=== PATIENT | male | born 1960 | race Caucasian/White ===

== ENCOUNTER 2017-01-17 20:50 | Emergency (ER) | payer BC ==
[2017-01-17] MEDS ORDERED: Sodium Chloride 0.9% 2.5 ML Syringe FLUSH PRN (20:59)
[2017-01-17] MEDS ORDERED: Sodium Chloride 0.9% 10 ML Syringe FLUSH PRN (20:59)
[2017-01-17] MEDS ORDERED: Sodium Chloride 0.9% 1,000 ML IV ONE (20:59)
--- NOTE | 2017-01-17 21:01 | EDM.PDOC ---
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 Patient states he's been experiencing some right-sided abdominal pain intermittently since Memorial Day. The pain comes and goes and is worse with movement he has no nausea or vomiting but has had some mildly loose stool. No bloody stool or black stool. Patient is concerned he might have a kidney stone as he has previously had these. Reports that his urinary habits have been abnormal and is not sure that he is voiding the entire contents of his bladder. Fevers chills sweats or shaking chills. Abdomen is not distended and he has no chest pain or shortness of breath no cough. Review of systems: As per history of present illness and below otherwise all systems reviewed and negative. Past medical history: As per history of present illness and as reviewed below otherwise noncontributory. Surgical history: As per history of present illness and as reviewed below otherwise noncontributory. Social history: No reported history of drug or alcohol abuse. Family history: As per history of present illness and as reviewed below otherwise noncontributory. Physical exam: HEENT: Atraumatic, normocephalic, pupils reactive, negative for conjunctival pallor or scleral icterus, mucous membranes moist, throat clear, neck supple, nontender, trachea midline. Lungs: Clear to auscultation, breath sounds equal bilaterally, chest nontender. Heart: S1S2, regular, negative for clicks, rubs, or JVD. Abdomen: Soft, nondistended, mild right-sided tenderness no guarding or rebound. Normal bowel sounds. Negative for masses or hepatosplenomegaly. Negative for costovertebral tenderness. No suprapubic tenderness. Normal skin skin with no rash. Pelvis: Stable nontender. Genitourinary: Normal external genitalia with nontender scrotum and contents and no inguinal mass or hernia. Rectal: Deferred. Extremities: Atraumatic, negative for cords or calf pain. Neurovascular unremarkable. Neuro: Awake, alert, oriented. Cranial nerves grossly unremarkable. Cerebellum unremarkable. Motor and sensory unremarkable throughout. Exam nonfocal. Diagnostics: [Labs and CT pending EKG normal sinus rhythm at 74 normal axis no STEMI] Therapeutics: [Analgesia and IV fluids administered Impression: [] Plan: [Signs and symptoms consistent with urinary colic versus intra-abdominal pathology full workup pending including labs and CT. Patient will be kept nothing by mouth IV fluids running and pain was addressed patient did involve some nausea and vomiting and was given Zofran. EKG unremarkable] Labs unremarkable. Urinalysis equivocal for possibility of early infection. CT shows less than 2 mm stone right UVJ normal appendix and otherwise unremarkable. Suggested prescription of Keflex per patient however he clarified that he has artery on amoxicillin which is DrKymberly gave him after results of a urine culture were recently obtained. He has no fevers chills sweats or shaking chills. No infectious prodrome prior to this visit. Patient pain is controlled and his vital signs are unremarkable. He agrees with outpatient follow-up. Prescription given for [place] and Zofran for use as needed. He will follow-up with PCP for reevaluation and referral to urology as needed Definitive disposition and diagnosis as appropriate pending reevaluation and review of above. Right Lower Abdominal Pain Score (Numeric/FACES): 10 - Related Data Allergies Allergy/AdvReac Type Severity Reaction Status Date / Time ciprofloxacin Allergy Hives Verified 01/17/17 20:59 Home Meds: Home Meds Warfarin [Coumadin] 5 mg PO ASDIRECTED 01/17/17 [History] Cephalexin [Keflex] 500 mg PO QID 10 Days 01/18/17 [Rx] Ondansetron [Zofran ODT] 4 mg SL Q4H PRN #16 tab.dis 01/18/17 [Rx] Social & Family History - Tobacco Use Smoking Status *Q: Never Smoker Second Hand Smoke Exposure: No - Alcohol Use Days Per Week of Alcohol Use: 2 Number of Drinks Per Day: 4 Total Drinks Per Week: 8 - Recreational Drug Use Recreational Drug Use: No ED ROS GENERAL - Review of Systems Review Of Systems: See Below (History of present illness) ED EXAM, GI/ABD - Physical Exam Exam: See Below (History of present illness) Course - Vital Signs Last Recorded V/S: Last Vital Signs Temp 35.4 C 01/17/17 20:56 Pulse 78 01/17/17 22:25 Resp 18 01/17/17 22:25 BP 149/79 H 01/17/17 22:25 Pulse Ox 96 01/17/17 22:25 - Orders/Labs/Meds Orders: Active Orders 24 hr Category Date Time Status EKG Documentation Completion [RC] STAT Care 01/17/17 22:17 Active Abdomen Pelvis w wo Cont [CT] Stat Exams 01/17/17 21:18 Taken CULTURE URINE [RM] Stat Lab 01/18/17 00:31 Received Sodium Chloride 0.9% [Saline Flush] Med 01/17/17 20:59 Active 10 ml FLUSH ASDIRECTED PRN Sodium Chloride 0.9% [Saline Flush] Med 01/17/17 20:59 Active 2.5 ml FLUSH ASDIRECTED PRN Peripheral IV Insertion Adult [OM.PC] Stat Oth 01/17/17 20:59 Ordered Medication Orders Sodium Chloride (Saline Flush) 10 ml FLUSH ASDIRECTED PRN PRN Reason: Keep Vein Open Last Admin: 01/17/17 21:15 Dose: 10 ml Sodium Chloride (Saline Flush) 2.5 ml FLUSH ASDIRECTED PRN PRN Reason: Keep Vein Open Last Admin: 01/17/17 21:15 Dose: 2.5 ml Labs: Laboratory Tests 01/17/17 01/17/17 01/17/17 Range/Units 21:36 21:36 21:40 WBC 7.39 (4.0-11.0) K/uL RBC 4.74 (4.50-5.90) M/uL Hgb 14.5 (13.0-17.0) g/dL Hct 43.8 (38.0-50.0) % MCV 92.4 (80.0-98.0) fL MCH 30.6 (27.0-32.0) pg MCHC 33.1 (31.0-37.0) g/dL RDW Std Deviation 43.7 (28.0-62.0) fl RDW Coeff of Lewis 13 (11.0-15.0) % Plt Count 370 (150-400) K/uL MPV 9.70 (7.40-12.00) fL Neut % (Auto) 54.3 (48.0-80.0) % Lymph % (Auto) 28.3 (16.0-40.0) % [place] % (Auto) 7.4 (0.0-15.0) % Eos % (Auto) 8.9 H (0.0-7.0) % Baso % (Auto) 1.1 (0.0-1.5) % Neut # (Auto) 4.0 (1.4-5.7) K/uL Lymph # (Auto) 2.1 (0.6-2.4) K/uL [place] # (Auto) 0.6 (0.0-0.8) K/uL Eos # (Auto) 0.7 (0.0-0.7) K/uL Baso # (Auto) 0.1 (0.0-0.1) K/uL Nucleated RBC % 0.0 /100WBC Nucleated RBCs # 0 K/uL Sodium 143 (136-146) mmol/L Potassium 4.2 (3.5-5.1) mmol/L Chloride 109 (98-110) mmol/L Carbon Dioxide 22 (21-31) mmol/L BUN 21 (6.0-23.0) mg/dL Creatinine 1.2 (0.6-1.5) mg/dL Est Cr Clr Drug Dosing 64.92 mL/min Estimated GFR (MDRD) > 60.0 ml/min Glucose 151 H (60-110) mg/dL Calcium 9.0 (8.8-10.8) mg/dL Total Bilirubin 0.2 (0.1-1.5) mg/dL AST 36 (5-40) IU/L ALT 23 (8-54) IU/L Alkaline Phosphatase 66 (40-150) Total Protein 7.4 (6.0-8.0) g/dL Albumin 3.9 (3.5-5.0) g/dL Globulin 3.5 (2.0-3.5) g/dL Albumin/Globulin Ratio 1.1 L (1.3-2.8) Lipase 18 (7-80) U/L Urine Color YELLOW Urine Appearance CLEAR Urine pH 5.5 (5.0-8.0) Ur Specific [place] >= 1.030 (1.001-1.035) Urine Protein 30 (NEGATIVE) mg/dL Urine Glucose (UA) NEGATIVE (NEGATIVE) mg/dL Urine Ketones NEGATIVE (NEGATIVE) mg/dL Urine Occult Blood LARGE H (NEGATIVE) Urine Nitrite NEGATIVE (NEGATIVE) Urine Bilirubin NEGATIVE (NEGATIVE) Urine Urobilinogen 0.2 (<2.0) EU/dL Ur Leukocyte Esterase TRACE (NEGATIVE) Urine RBC 25-30 (0-2/HPF) Urine WBC 20-25 (0-5/HPF) Ur Epithelial Cells RARE (NONE-FEW) Urine Bacteria FEW (NEGATIVE) Urine Mucus LIGHT (NONE-MOD) Urinalysis Comment Meds: Medications Generic Name Dose Route Start Last Admin Trade Name Freq PRN Reason Stop Dose Admin Sodium Chloride 10 ml 01/17/17 20:59 01/17/17 21:15 Saline Flush FLUSH 10 ml ASDIRECTED PRN Administration Keep Vein Open Sodium Chloride 2.5 ml 01/17/17 20:59 01/17/17 21:15 Saline Flush FLUSH 2.5 ml ASDIRECTED PRN Administration Keep Vein Open Discontinued Medications Generic Name Dose Route Start Last Admin Trade Name Freq PRN Reason Stop Dose Admin Cephalexin 500 mg 01/18/17 00:12 01/18/17 00:31 Keflex PO 01/18/17 00:13 500 mg ONETIME ONE Administration Hydromorphone HCl 1 mg 01/17/17 21:19 01/17/17 22:04 Dilaudid IVPUSH 01/17/17 21:20 1 mg ONETIME ONE Administration Hydromorphone HCl 1 mg 01/18/17 00:36 01/18/17 00:48 Dilaudid IVPUSH 01/18/17 00:37 1 mg ONETIME ONE Administration Sodium Chloride 1,000 mls @ 999 mls/hr 01/17/17 20:59 01/17/17 21:15 Normal Saline IV 01/17/17 21:59 999 mls/hr .Bolus ONE Administration Iopamidol 100 ml 01/17/17 22:45 01/17/17 22:46 Isovue-370 (76%) IVPUSH 01/17/17 22:46 100 ml ONETIME STA Administration Ondansetron HCl 4 mg 01/17/17 21:58 01/17/17 22:04 Zofran IVPUSH 01/17/17 21:59 4 mg ONETIME ONE Administration Ondansetron HCl 4 mg 01/18/17 00:37 01/18/17 00:48 Zofran IVPUSH 01/18/17 00:38 4 mg ONETIME ONE Administration Departure - Departure Time of Disposition: :17 Disposition: Home, Self-Care 01 Condition: good Clinical Impression: Ureterolithiasis, Ureteral colic, Right flank pain - Discharge Information Prescriptions: Cephalexin [Keflex] 500 mg PO QID 10 Days Ondansetron [Zofran ODT] 4 mg SL Q4H PRN #16 tab.dis PRN Reason: Nausea Instructions: Renal Colic, [id number], Flank Pain, [id number] Referrals: Marcin Whelan MD [Primary Care Provider] - Forms: ED Department Discharge Additional Instructions: Your CT showed a 1.6 mm kidney stone just above the spot where your ureter enters the bladder. This is a very small kidney stone and will almost certainly pass spontaneously into your bladder and then out through your urethra. As you' re more comfortable at this point this tiny stone may have already passed into her bladder. Use [place] as needed for pain. Your urinalysis showed results that were equivocal regarding the possibility of an early infection. A urine culture will be pending and to air on the side of caution you've been prescribed Keflex an antibiotic that would cover a urinary tract infection. Follow-up with your tomorrow for reevaluation and to discuss whether eventual referral to a urologist might be indicated. Return immediately for new severe or worsening symptoms specifically for fever associated with worsening pain. Also be aware of the you do have multiple small kidney stones in both kidneys. It's impossible to predict whether or not he will ever pass any of these kidney stones but it's appropriate to be aware that they exist. - My Orders Last 24 Hours: My Active Orders 01/17/17 20:59 Sodium Chloride 0.9% [Saline Flush] 10 ml FLUSH ASDIRECTED PRN Sodium Chloride 0.9% [Saline Flush] 2.5 ml FLUSH ASDIRECTED PRN Peripheral IV Insertion Adult [OM.PC] Stat 01/17/17 21:18 Abdomen Pelvis w wo Cont [CT] Stat 01/17/17 22:17 EKG Documentation Completion [RC] STAT 01/18/17 00:31 CULTURE URINE [RM] Stat - Assessment/Plan Last 24 Hours: My Active Orders 01/17/17 20:59 Sodium Chloride 0.9% [Saline Flush] 10 ml FLUSH ASDIRECTED PRN Sodium Chloride 0.9% [Saline Flush] 2.5 ml FLUSH ASDIRECTED PRN Peripheral IV Insertion Adult [OM.PC] Stat 01/17/17 21:18 Abdomen Pelvis w wo Cont [CT] Stat 01/17/17 22:17 EKG Documentation Completion [RC] STAT 01/18/17 00:31 CULTURE URINE [RM] Stat
[2017-01-17] MEDS ORDERED: HYDROmorphone 1 MG/ML Syringe IVPUSH ONE (21:19)
[2017-01-17] MEDS ORDERED: Ondansetron 4 MG/2 ML SDV IVPUSH ONE (21:58)
[2017-01-17 22:09] LABS: CHLORIDE,CL 109 mmol/L (98-110); SODIUM,NA 143 mmol/L (136-146)
[2017-01-17] MEDS ORDERED: Iopamidol 755 Mg/ML 100 ML Bottle IVPUSH STA (22:45)
[2017-01-18] MEDS ORDERED: Cephalexin 500 MG Cap PO ONE (00:12)
[2017-01-18] MEDS ORDERED: HYDROmorphone 1 MG/ML Syringe IVPUSH ONE (00:36)
[2017-01-18] MEDS ORDERED: Ondansetron 4 MG/2 ML SDV IVPUSH ONE (00:37)
[2017-01-18 01:57] VITALS: BP 150/84
--- NOTE | 2017-01-18 11:12 | CT ---
EXAM DATE: 01/17/17 PATIENT'S AGE: 56 Patient: MAYA MIRANDA Facility: [place], [place] Site . Site : 1960 Study: CT Abdomen/Pelvis W/ and W/O Cont [id number]/[id number] 11:01:45 PM Ordering Physician: Jm Mathis Final Report: INDICATION: right lower quad pain with n/v/d TECHNIQUE: CT abdomen and pelvis acquired without and with IV contrast. COMPARISON: April 09, 2013. FINDINGS: Lower chest: Mild scarring/atelectasis. Liver: Unremarkable. Spleen: Unremarkable. Pancreas: Unremarkable. Gallbladder and bile ducts: Unremarkable. Kidneys: 6 mm calculus just proximal to the right ureterovesicular junction with associated right-sided hydroureter / hydronephrosis. Additional bilateral nonobstructing intrarenal calculi. . Adrenal glands: Unremarkable. GI tract: Unremarkable. Appendix is normal. Vascular structures: Atherosclerotic disease. No sign of aneurysm. Lymph nodes: Unremarkable. Miscellaneous: Unremarkable. No free air or significant free fluid. Pelvic Organs: Enlarged prostate with associated prostatic calcifications. Bones: Degenerative changes. IMPRESSION: 1. 6 mm calculus just proximal to the right ureterovesicular junction with associated right-sided hydroureter / hydronephrosis. Additional bilateral nonobstructing intrarenal calculi. 2. Enlarged prostate. Please correlate with PSA levels. Dictated by Félix North MD @ 01/17/2017 11:35:23 PM Dictated by: Félix North MD @ 01/17/2017 23:35:34 (Electronic Signature) Report Signed by Proxy. [facility]
== END 2017-01-18 01:10 | disposition home or self-care (01) ==
LOC: MW.ED 20:50
DX: N13.2 Hydronephrosis with renal and ureteral calculous obstruction (principal); Z88.1 Allergy status to other antibiotic agents
CPT/HCPCS: 36415; 74178; 80053; 81001; 83690; 85025; 87086; 93005; 96361; 96374; 96375; 96376; 99284; A9270; J1170; J2405; J7040; Q9967

== ENCOUNTER 2017-03-23 13:16 | Emergency (ER) | payer BC, OTHER ==
[2017-03-23] MEDS ORDERED: Sodium Chloride 0.9% 2.5 ML Syringe FLUSH PRN (14:12)
[2017-03-23] MEDS ORDERED: Sodium Chloride 0.9% 10 ML Syringe FLUSH PRN (14:12)
[2017-03-23] MEDS ORDERED: Sodium Chloride 0.9% 1,000 ML IV ONE (14:12)
--- NOTE | 2017-03-23 14:13 | EDM.PDOC ---
ED HPI GENERAL MEDICAL PROBLEM - General Chief Complaint: Gastrointestinal Problem Stated Complaint: SICK Time Seen by Provider: 03/23/17 13:50 Source of Information: Reports: Patient History Limitations: Reports: No Limitations - History of Present Illness INITIAL COMMENTS - FREE TEXT/NARRATIVE: History of present illness: []Patient developed lower abdominal pain last night that started localizing to the right side and wrapping around to his right flank. He denies any blood in his urine or difficulty urinating, fevers, diarrhea or nausea. Patient thought he may be constipated and gave himself an enema without any improvement. He was diagnosed with a left-sided kidney stone 1 month ago states this feels similar. Patient has not had any previous abdominal surgery. Review of systems: As per history of present illness and below otherwise all systems reviewed and negative. Past medical history: As per history of present illness and as reviewed below otherwise noncontributory. Surgical history: As per history of present illness and as reviewed below otherwise noncontributory. Social history: No reported history of drug or alcohol abuse. Family history: As per history of present illness and as reviewed below otherwise noncontributory. Physical exam: General: Well developed, well nourished in NAD HEENT: Atraumatic, normocephalic, pupils reactive, negative for conjunctival pallor or scleral icterus, mucous membranes moist, throat clear, neck supple, nontender, trachea midline. Lungs: Clear to auscultation, breath sounds equal bilaterally, chest nontender. Heart: S1S2, regular, negative for clicks, rubs, or JVD. Abdomen: Soft, nondistended, suprapubic bilateral tenderness worse on the right no rebound or guarding. There is no tenderness over McBurney's point. Negative for masses or hepatosplenomegaly. Negative for costovertebral tenderness. Pelvis: Stable nontender. Genitourinary: Deferred. Rectal: Deferred. Extremities: Atraumatic, negative for cords or calf pain. Neurovascular unremarkable. Neuro: Awake, alert, oriented. Cranial nerves II through XII unremarkable. Cerebellum unremarkable. Motor and sensory unremarkable throughout. Exam nonfocal. Diagnostics: []UA showing mild hematuria Therapeutics: []Patient was hydrated with IV fluids with pain completely resolved Impression: []Renal colic right Plan: []Increase fluids. I believe one dose of Toradol is safe despite being on anticoagulants if pain recurs, she prefers to not have narcotics. follow-up with Dr. Matias or return to the ER immediately Definitive disposition and diagnosis as appropriate pending reevaluation and review of above. Right Abdomen Pain Score (Numeric/FACES): 5 - Related Data Allergies Allergy/AdvReac Type Severity Reaction Status Date / Time ciprofloxacin Allergy Hives Verified 03/23/17 13:55 Home Meds: Home Meds Warfarin [Coumadin] 5 mg PO ASDIRECTED 01/17/17 [History] Ketorolac [Toradol] 10 mg PO Q6H PRN #6 tablet 03/23/17 [Rx] Past Medical History Cardiovascular History: Reports: Blood Clots/VTE/DVT Respiratory History: Reports: Sleep Apnea Gastrointestinal History: Reports: GERD Genitourinary History: Reports: Renal Calculus - Infectious Disease History Infectious Disease History: Reports: Chicken Pox Social & Family History - Family History Family Medical History: Noncontributory - Tobacco Use Smoking Status *Q: Never Smoker Second Hand Smoke Exposure: No - Caffeine Use Caffeine Use: Reports: None - Alcohol Use Days Per Week of Alcohol Use: 2 Number of Drinks Per Day: 4 Total Drinks Per Week: 8 - Recreational Drug Use Recreational Drug Use: No ED ROS GENERAL - Review of Systems Review Of Systems: See Below (See history of present illness) ED EXAM, GI/ABD - Physical Exam Exam: See Below (See history of present illness) Course - Vital Signs Last Recorded V/S: Last Vital Signs Temp 37.1 C 03/23/17 13:56 Pulse 82 03/23/17 13:56 Resp 18 03/23/17 13:56 BP 150/72 H 03/23/17 13:56 Pulse Ox 94 L 03/23/17 13:56 - Orders/Labs/Meds Orders: Active Orders 24 hr Category Date Time Status Sodium Chloride 0.9% [Saline Flush] Med 03/23/17 14:12 Active 10 ml FLUSH ASDIRECTED PRN Sodium Chloride 0.9% [Saline Flush] Med 03/23/17 14:12 Active 2.5 ml FLUSH ASDIRECTED PRN Saline Lock Insert [OM.PC] Stat Oth 03/23/17 14:12 Ordered Medication Orders Sodium Chloride (Saline Flush) 10 ml FLUSH ASDIRECTED PRN PRN Reason: Keep Vein Open Sodium Chloride (Saline Flush) 2.5 ml FLUSH ASDIRECTED PRN PRN Reason: Keep Vein Open Labs: Laboratory Tests 03/23/17 03/23/17 03/23/17 Range/Units 14:22 14:22 14:44 WBC 9.43 (4.0-11.0) K/uL RBC 4.76 (4.50-5.90) M/uL Hgb 14.4 (13.0-17.0) g/dL Hct 43.2 (38.0-50.0) % MCV 90.8 (80.0-98.0) fL MCH 30.3 (27.0-32.0) pg MCHC 33.3 (31.0-37.0) g/dL RDW Std Deviation 44.4 (28.0-62.0) fl RDW Coeff of Lewis 13 (11.0-15.0) % Plt Count 273 (150-400) K/uL MPV 10.10 (7.40-12.00) fL Neut % (Auto) 89.0 H (48.0-80.0) % Lymph % (Auto) 6.5 L (16.0-40.0) % [place] % (Auto) 4.3 (0.0-15.0) % Eos % (Auto) 0.0 (0.0-7.0) % Baso % (Auto) 0.2 (0.0-1.5) % Neut # (Auto) 8.4 H (1.4-5.7) K/uL Lymph # (Auto) 0.6 (0.6-2.4) K/uL [place] # (Auto) 0.4 (0.0-0.8) K/uL Eos # (Auto) 0.0 (0.0-0.7) K/uL Baso # (Auto) 0.0 (0.0-0.1) K/uL Nucleated RBC % 0.0 /100WBC Nucleated RBCs # 0 K/uL Sodium 139 (136-146) mmol/L Potassium 4.2 (3.5-5.1) mmol/L Chloride 107 (98-110) mmol/L Carbon Dioxide 22 (21-31) mmol/L BUN 20 (6.0-23.0) mg/dL Creatinine 1.1 (0.6-1.5) mg/dL Est Cr Clr Drug Dosing 69.95 mL/min Estimated GFR (MDRD) > 60.0 ml/min Glucose 140 H (60-110) mg/dL Calcium 8.7 L (8.8-10.8) mg/dL Total Bilirubin 0.4 (0.1-1.5) mg/dL AST 20 (5-40) IU/L ALT 15 (8-54) IU/L Alkaline Phosphatase 63 (40-150) Total Protein 6.9 (6.0-8.0) g/dL Albumin 3.8 (3.5-5.0) g/dL Globulin 3.1 (2.0-3.5) g/dL Albumin/Globulin Ratio 1.2 L (1.3-2.8) Lipase 14 (7-80) U/L Urine Color YELLOW Urine Appearance CLEAR Urine pH 6.0 (5.0-8.0) Ur Specific [place] 1.025 (1.001-1.035) Urine Protein NEGATIVE (NEGATIVE) mg/dL Urine Glucose (UA) NEGATIVE (NEGATIVE) mg/dL Urine Ketones NEGATIVE (NEGATIVE) mg/dL Urine Occult Blood MODERATE (NEGATIVE) Urine Nitrite NEGATIVE (NEGATIVE) Urine Bilirubin NEGATIVE (NEGATIVE) Urine Urobilinogen 0.2 (<2.0) EU/dL Ur Leukocyte Esterase NEGATIVE (NEGATIVE) Urine RBC 4-6 (0-2/HPF) Urine WBC 0-2 (0-5/HPF) Ur Epithelial Cells FEW (NONE-FEW) Urine Bacteria FEW (NEGATIVE) Urine Mucus MODERATE (NONE-MOD) Meds: Medications Generic Name Dose Route Start Last Admin Trade Name Freq PRN Reason Stop Dose Admin Sodium Chloride 10 ml 03/23/17 14:12 Saline Flush FLUSH ASDIRECTED PRN Keep Vein Open Sodium Chloride 2.5 ml 03/23/17 14:12 Saline Flush FLUSH ASDIRECTED PRN Keep Vein Open Discontinued Medications Generic Name Dose Route Start Last Admin Trade Name Freq PRN Reason Stop Dose Admin Sodium Chloride 1,000 mls @ 999 mls/hr 03/23/17 14:12 03/23/17 14:23 Normal Saline IV 03/23/17 15:12 999 mls/hr .Bolus ONE Administration Departure - Departure Time of Disposition: 15:51 Disposition: Home, Self-Care 01 Condition: Good Clinical Impression: Renal colic on right side - Discharge Information Prescriptions: Ketorolac [Toradol] 10 mg PO Q6H PRN #6 tablet PRN Reason: Pain Referrals: PCP,None [Primary Care Provider] - Forms: ED Department Discharge Additional Instructions: The following information is given to patients seen in the emergency department who are being discharged to home. This information is to outline your options for follow-up care. We provide all patients seen in our emergency department with a follow-up referral. The need for follow-up, as well as the timing and circumstances, are variable depending upon the specifics of your emergency department visit. If you don't have a primary care physician on staff, we will provide you with a referral. We always advise you to contact your personal physician following an emergency department visit to inform them of the circumstance of the visit and for follow-up with them and/or the need for any referrals to a consulting specialist. The emergency department will also refer you to a specialist when appropriate. This referral assures that you have the opportunity for follow-up care with a specialist. All of these measure are taken in an effort to provide you with optimal care, which includes your follow-up. Under all circumstances we always encourage you to contact your private physician who remains a resource for coordinating your care. When calling for follow-up care, please make the office aware that this follow-up is from your recent emergency room visit. If for any reason you are refused follow-up, please contact the [facility] Emergency Department at and asked to speak to the emergency department charge nurse. Take one Toradol if severe pain occurs and return to the ER or call Dr. Matias. [facility] - Urology [address] [place] [phone] - My Orders Last 24 Hours: My Active Orders 03/23/17 14:12 Sodium Chloride 0.9% [Saline Flush] 10 ml FLUSH ASDIRECTED PRN Sodium Chloride 0.9% [Saline Flush] 2.5 ml FLUSH ASDIRECTED PRN Saline Lock Insert [OM.PC] Stat - Assessment/Plan Last 24 Hours: My Active Orders 03/23/17 14:12 Sodium Chloride 0.9% [Saline Flush] 10 ml FLUSH ASDIRECTED PRN Sodium Chloride 0.9% [Saline Flush] 2.5 ml FLUSH ASDIRECTED PRN Saline Lock Insert [OM.PC] Stat
[2017-03-23 15:02] LABS: CHLORIDE,CL 107 mmol/L (98-110); SODIUM,NA 139 mmol/L (136-146)
[2017-03-23 16:20] VITALS: BP 127/73
== END 2017-03-23 16:15 | disposition home or self-care (01) ==
LOC: MW.ED 13:16
DX: N23 Unspecified renal colic (principal); K21.9 Gastro-esophageal reflux disease without esophagitis; Z88.1 Allergy status to other antibiotic agents; Z79.01 Long term (current) use of anticoagulants
CPT/HCPCS: 36415; 80053; 81001; 83690; 85025; 96360; 96361; 99284; J7040; 99282

== ENCOUNTER 2019-01-23 21:57 | Emergency (ER) | payer SELFPAY ==
[2019-01-23] MEDS ORDERED: Sodium Chloride 0.9% 10 ML Syringe FLUSH PRN (22:29)
[2019-01-23] MEDS ORDERED: Morphine 2 MG/ML Syringe IVPUSH ONE (22:29)
[2019-01-23] MEDS ORDERED: Ketorolac 30 MG/ML SDV IVPUSH ONE (22:29)
[2019-01-23] MEDS ORDERED: Ondansetron 4 MG/2 ML SDV IVPUSH ONE (22:29)
[2019-01-23] MEDS ORDERED: Sodium Chloride 0.9% 2.5 ML Syringe FLUSH PRN (22:29)
[2019-01-23] MEDS ORDERED: Sodium Chloride 0.9% 1,000 ML IV ONE (22:29)
--- NOTE | 2019-01-23 22:33 | EDM.PDOC ---
ED HPI GENERAL MEDICAL PROBLEM - General Chief Complaint: Flank Pain Stated Complaint: LOWER BACK PAIN Time Seen by Provider: 01/23/19 22:16 - History of Present Illness INITIAL COMMENTS - FREE TEXT/NARRATIVE: HISTORY AND PHYSICAL: History of present illness: The patient is a [id number] male who has a history of multiple kidney stones bilaterally and has followed with Dr. Matias in the past and presents with left flank pain that does not radiate to his abdomen that he had an episode on Saturday for about 4 hours and then it went away for 2 days and then returned about 2-1/2 hours ago. The patient said he has never had surgical intervention for kidney stones and as always passed them spontaneously and Saturday he thought he was passing a kidney stone but the pain went away after he push hydration. He was good for 2 days and then it returned suddenly today. He says it is only in his left back and does not radiate to his abdomen and he has had nausea and an episode of vomiting here in the ED. He's had no diarrhea no burning or pain with urination and no right-sided pain. He's had no fever chills chest pain or shortness of breath. He did not take anything for pain prior to coming here. He says this feels like a kidney stone. He says he is having normal bowel movements Review of systems: As per history of present illness and below otherwise all systems reviewed and negative. Past medical history: As per history of present illness and as reviewed below otherwise noncontributory. Surgical history: As per history of present illness and as reviewed below otherwise noncontributory. Social history: No reported history of drug or alcohol abuse. Family history: As per history of present illness and as reviewed below otherwise noncontributory. Physical exam: General: Well-developed well-nourished man who is overweight but nontoxic and ambulatory in the ED. He handed me his vomitus which was mostly orange tinged from the Gatorade he was drinking and there was no black or blood. HEENT: Atraumatic, normocephalic, negative for conjunctival pallor or scleral icterus, mucous membranes moist, throat clear, neck supple, nontender, trachea midline. Lungs: Clear to auscultation, breath sounds equal bilaterally, chest nontender. Heart: S1S2, regular, rate and rhythm no overt murmurs Abdomen: Soft, nondistended, nontender. Negative for masses or hepatosplenomegaly. Negative for costovertebral tenderness. On palpation I cannot reproduce the pain Pelvis: Stable nontender. Genitourinary: Deferred. Rectal: Deferred. Extremities: Atraumatic, negative for cords or calf pain. Neurovascular unremarkable. Neuro: Awake, alert, oriented. Cranial nerves II through XII unremarkable. Cerebellum unremarkable. Motor and sensory unremarkable throughout. Exam nonfocal. Diagnostics: CBC CMP lipase UA with reflex INR CT scan of the abdomen and pelvis Therapeutics: IV fluids Zofran and morphine Toradol and Flomax urine strainers 0045: Patient has been resting comfortably and no longer has pain and is not vomiting. Fact he is thirsty and we will give him some water. I discussed with him and at bedside testing results including the fact that there is a proximal left ureteral stone 6 x 9 mm. I discussed this case with Dr. Matias at this time and he would like the patient to get pain medications for home Flomax and he will see the patient on Saturday in his office at 1 PM. I relayed this information to the patient. I will give the patient medications for pain and Flomax and have advised on reasons to return. The patient also received urine strainers Patient says that he does have pain medications at home that he received from his family provider for pain management and he would like to use those but I will give her a prescription for Percocet if those don't work or if they are . I will also give him a prescription for Zofran and Flomax as the does not want to use [facility]. Impression: Left ureterolithiasis Definitive disposition and diagnosis as appropriate pending reevaluation and review of above. Left Flank Pain Score (Numeric/FACES): 8 - Related Data Allergies Allergy/AdvReac Type Severity Reaction Status Date / Time ciprofloxacin Allergy Hives Verified 01/23/19 22:11 Home Meds: Home Meds Warfarin [Coumadin] 5 mg PO ASDIRECTED 01/17/17 [History] Gabapentin [Neurontin] 300 mg PO DAILY 01/23/19 [History] Past Medical History Cardiovascular History: Reports: Blood Clots/VTE/DVT Respiratory History: Reports: Sleep Apnea Gastrointestinal History: Reports: GERD Genitourinary History: Reports: Renal Calculus - Infectious Disease History Infectious Disease History: Reports: Chicken Pox Social & Family History - Family History Family Medical History: Noncontributory - Tobacco Use Smoking Status *Q: Never Smoker - Caffeine Use Caffeine Use: Reports: None - Recreational Drug Use Recreational Drug Use: No ED ROS GENERAL - Review of Systems Review Of Systems: ROS reveals no pertinent complaints other than HPI. ED EXAM, GENERAL - Physical Exam Exam: See Below (See dictation) Course - Vital Signs Last Recorded V/S: Last Vital Signs Temp 36.3 C 01/23/19 22:12 Pulse 78 01/24/19 00:42 Resp 18 01/23/19 23:44 BP 140/76 01/24/19 00:42 Pulse Ox 97 01/24/19 00:42 - Orders/Labs/Meds Orders: Active Orders 24 hr Category Date Time Status Communication Order [RC] STAT Care 01/24/19 00:45 Ordered Sodium Chloride 0.9% [Saline Flush] Med 01/23/19 22:29 Active 10 ml FLUSH ASDIRECTED PRN Sodium Chloride 0.9% [Saline Flush] Med 01/23/19 22:29 Active 2.5 ml FLUSH ASDIRECTED PRN Tamsulosin [Flomax] Med 01/24/19 00:45 Once 0.4 mg PO ONETIME ONE Saline Lock Insert [OM.PC] Stat Oth 01/23/19 22:29 Ordered Medication Orders Sodium Chloride (Saline Flush) 10 ml FLUSH ASDIRECTED PRN PRN Reason: Keep Vein Open Last Admin: 01/23/19 22:51 Dose: 10 ml Sodium Chloride (Saline Flush) 2.5 ml FLUSH ASDIRECTED PRN PRN Reason: Keep Vein Open Last Admin: 01/23/19 22:51 Dose: 2.5 ml Labs: Laboratory Tests 01/23/19 01/23/19 01/23/19 Range/Units 22:15 22:40 22:40 WBC 8.07 (4.0-11.0) K/uL RBC 4.85 (4.50-5.90) M/uL Hgb 14.9 (13.0-17.0) g/dL Hct 45.4 (38.0-50.0) % MCV 93.6 (80.0-98.0) fL MCH 30.7 (27.0-32.0) pg MCHC 32.8 (31.0-37.0) g/dL RDW Std Deviation 45.9 (28.0-62.0) fl RDW Coeff of Lewis 13 (11.0-15.0) % Plt Count 264 (150-400) K/uL MPV 10.20 (7.40-12.00) fL Neut % (Auto) 62.2 (48.0-80.0) % Lymph % (Auto) 21.6 (16.0-40.0) % Pratt % (Auto) 7.1 (0.0-15.0) % Eos % (Auto) 8.7 H (0.0-7.0) % Baso % (Auto) 0.4 (0.0-1.5) % Neut # (Auto) 5.0 (1.4-5.7) K/uL Lymph # (Auto) 1.7 (0.6-2.4) K/uL Pratt # (Auto) 0.6 (0.0-0.8) K/uL Eos # (Auto) 0.7 (0.0-0.7) K/uL Baso # (Auto) 0.0 (0.0-0.1) K/uL Nucleated RBC % 0.0 /100WBC Nucleated RBCs # 0 K/uL INR Sodium 142 (136-148) mmol/L Potassium 4.0 (3.5-5.1) mmol/L Chloride 107 (98-107) mmol/L Carbon Dioxide 29.4 (21.0-32.0) mmol/L BUN 20 H (7.0-18.0) mg/dL Creatinine 1.1 (0.8-1.3) mg/dL Est Cr Clr Drug Dosing 69.09 mL/min Estimated GFR (MDRD) > 60.0 ml/min Glucose 117 H (74-106) mg/dL Calcium 9.1 (8.5-10.1) mg/dL Total Bilirubin 0.3 (0.2-1.0) mg/dL AST 11 L (15-37) IU/L ALT 5 L (14-63) IU/L Alkaline Phosphatase 74 (46-116) U/L Total Protein 7.2 (6.4-8.2) g/dL Albumin 3.7 (3.4-5.0) g/dL Globulin 3.5 (2.6-4.0) g/dL Albumin/Globulin Ratio 1.1 (0.9-1.6) Lipase 109 (73-393) U/L Urine Color YELLOW Urine Appearance CLEAR Urine pH 6.0 (5.0-8.0) Ur Specific Milroy 1.025 (1.001-1.035) Urine Protein NEGATIVE (NEGATIVE) mg/dL Urine Glucose (UA) NEGATIVE (NEGATIVE) mg/dL Urine Ketones NEGATIVE (NEGATIVE) mg/dL Urine Occult Blood TRACE-INTACT H (NEGATIVE) Urine Nitrite NEGATIVE (NEGATIVE) Urine Bilirubin NEGATIVE (NEGATIVE) Urine Urobilinogen 0.2 (<2.0) EU/dL Ur Leukocyte Esterase NEGATIVE (NEGATIVE) Urine RBC 1-3 (0-2/HPF) Urine WBC 0-2 (0-5/HPF) Ur Epithelial Cells OCCASIONAL (NONE-FEW) Urine Bacteria RARE (NEGATIVE) Urine Mucus LIGHT (NONE-MOD) 01/23/19 Range/Units 22:40 WBC (4.0-11.0) K/uL RBC (4.50-5.90) M/uL Hgb (13.0-17.0) g/dL Hct (38.0-50.0) % MCV (80.0-98.0) fL MCH (27.0-32.0) pg MCHC (31.0-37.0) g/dL RDW Std Deviation (28.0-62.0) fl RDW Coeff of Lewis (11.0-15.0) % Plt Count (150-400) K/uL MPV (7.40-12.00) fL Neut % (Auto) (48.0-80.0) % Lymph % (Auto) (16.0-40.0) % Pratt % (Auto) (0.0-15.0) % Eos % (Auto) (0.0-7.0) % Baso % (Auto) (0.0-1.5) % Neut # (Auto) (1.4-5.7) K/uL Lymph # (Auto) (0.6-2.4) K/uL Pratt # (Auto) (0.0-0.8) K/uL Eos # (Auto) (0.0-0.7) K/uL Baso # (Auto) (0.0-0.1) K/uL Nucleated RBC % /100WBC Nucleated RBCs # K/uL INR 1.41 Sodium (136-148) mmol/L Potassium (3.5-5.1) mmol/L Chloride (98-107) mmol/L Carbon Dioxide (21.0-32.0) mmol/L BUN (7.0-18.0) mg/dL Creatinine (0.8-1.3) mg/dL Est Cr Clr Drug Dosing mL/min Estimated GFR (MDRD) ml/min Glucose (74-106) mg/dL Calcium (8.5-10.1) mg/dL Total Bilirubin (0.2-1.0) mg/dL AST (15-37) IU/L ALT (14-63) IU/L Alkaline Phosphatase (46-116) U/L Total Protein (6.4-8.2) g/dL Albumin (3.4-5.0) g/dL Globulin (2.6-4.0) g/dL Albumin/Globulin Ratio (0.9-1.6) Lipase (73-393) U/L Urine Color Urine Appearance Urine pH (5.0-8.0) Ur Specific Milroy (1.001-1.035) Urine Protein (NEGATIVE) mg/dL Urine Glucose (UA) (NEGATIVE) mg/dL Urine Ketones (NEGATIVE) mg/dL Urine Occult Blood (NEGATIVE) Urine Nitrite (NEGATIVE) Urine Bilirubin (NEGATIVE) Urine Urobilinogen (<2.0) EU/dL Ur Leukocyte Esterase (NEGATIVE) Urine RBC (0-2/HPF) Urine WBC (0-5/HPF) Ur Epithelial Cells (NONE-FEW) Urine Bacteria (NEGATIVE) Urine Mucus (NONE-MOD) Meds: Medications Generic Name Dose Route Start Last Admin Trade Name Freq PRN Reason Stop Dose Admin Sodium Chloride 10 ml 01/23/19 22:29 01/23/19 22:51 Saline Flush FLUSH 10 ml ASDIRECTED PRN Administration Keep Vein Open Sodium Chloride 2.5 ml 01/23/19 22:29 01/23/19 22:51 Saline Flush FLUSH 2.5 ml ASDIRECTED PRN Administration Keep Vein Open Discontinued Medications Generic Name Dose Route Start Last Admin Trade Name Freq PRN Reason Stop Dose Admin Sodium Chloride 1,000 mls @ 999 mls/hr 01/23/19 22:29 01/23/19 22:40 Normal Saline IV 01/23/19 23:29 999 mls/hr STAT ONE Administration Ketorolac Tromethamine 30 mg 01/23/19 22:29 01/23/19 22:50 Toradol IVPUSH 01/23/19 22:30 30 mg ONETIME ONE Administration Morphine Sulfate 4 mg 01/23/19 22:29 01/23/19 22:55 Morphine IVPUSH 01/23/19 22:30 4 mg ONETIME ONE Administration Ondansetron HCl 4 mg 01/23/19 22:29 01/23/19 22:40 Zofran IVPUSH 01/23/19 22:30 4 mg ONETIME ONE Administration Departure - Departure Time of Disposition: 00:47 Disposition: Home, Self-Care 01 Condition: Good Clinical Impression: Ureterolithiasis - Discharge Information Referrals: PCP,None [Primary Care Provider] - Forms: ED Department Discharge Additional Instructions: The following information is given to patients seen in the emergency department who are being discharged to home. This information is to outline your options for follow-up care. We provide all patients seen in our emergency department with a follow-up referral. The need for follow-up, as well as the timing and circumstances, are variable depending upon the specifics of your emergency department visit. If you don't have a primary care physician on staff, we will provide you with a referral. We always advise you to contact your personal physician following an emergency department visit to inform them of the circumstance of the visit and for follow-up with them and/or the need for any referrals to a consulting specialist. The emergency department will also refer you to a specialist when appropriate. This referral assures that you have the opportunity for followup care with a specialist. All of these measure are taken in an effort to provide you with optimal care, which includes your followup. Under all circumstances we always encourage you to contact your private physician who remains a resource for coordinating your care. When calling for followup care, please make the office aware that this follow-up is from your recent emergency room visit. If for any reason you are refused follow-up, please contact the [facility] emergency department at and ask to speak to the emergency department charge nurse. [facility] [address] [place] [address] Push hydration and take medications as prescribed to you Lashae cheng for nausea and vomiting and Flomax to help move the kidney stone. Please use the medications you have at home for pain management and switched to the Percocet you have been prescribed as you need titrating the dose further prescription. Please go and see Dr. Matias at his office on Saturday at 1 PM as he is aware that you are coming. ER as needed and as discussed. Strain all urine looking for the kidney stone. - My Orders Last 24 Hours: My Active Orders 01/23/19 22:29 Sodium Chloride 0.9% [Saline Flush] 10 ml FLUSH ASDIRECTED PRN Sodium Chloride 0.9% [Saline Flush] 2.5 ml FLUSH ASDIRECTED PRN Saline Lock Insert [OM.PC] Stat 01/24/19 00:45 Communication Order [RC] STAT Tamsulosin [Flomax] 0.4 mg PO ONETIME ONE - Assessment/Plan Last 24 Hours: My Active Orders 01/23/19 22:29 Sodium Chloride 0.9% [Saline Flush] 10 ml FLUSH ASDIRECTED PRN Sodium Chloride 0.9% [Saline Flush] 2.5 ml FLUSH ASDIRECTED PRN Saline Lock Insert [OM.PC] Stat 01/24/19 00:45 Communication Order [RC] STAT Tamsulosin [Flomax] 0.4 mg PO ONETIME ONE
[2019-01-23 23:15] LABS: CHLORIDE,CL 107 mmol/L (98-107); SODIUM,NA 142 mmol/L (136-148)
--- NOTE | 2019-01-24 00:04 | CT ---
INDICATION: Left flank pain. History of kidney stones. COMPARISON: 01/16/2017 TECHNIQUE: CT examination of the abdomen and pelvis was performed without contrast enhancement using 3 mm thick axial sections from the lung bases through the pubic symphysis. Oral contrast was not administered. Please note that all CT scans at this facility use dose modulation, iterative reconstruction, and/or weight-based dosing when appropriate to reduce radiation dose to as low as reasonably achievable. FINDINGS: In the abdomen, the unenhanced liver, spleen, pancreas, and ADRENALS are normal in appearance. There is new moderate left hydronephrosis and hydroureter produced by a 6 x 9 millimeter calculus located in the right proximal ureter at the superior L4 level. This calculus was previously in the lower pole of the left kidney. There is a tiny 2 millimeter nonobstructive calculus in the anterior interpolar left kidney. The previously seen right hydronephrosis and hydroureter has resolved, with interval passage of the right distal ureteral calculus. Again seen are a few small nonobstructive calculi in the interpolar region of the right kidney. The previously seen dominant calculus in the lower pole of the right kidney is no longer present. The gallbladder is normal in appearance. The abdominal aorta is normal in caliber with no sign of dilatation. There is no sign of retroperitoneal mass or adenopathy. The stomach, loops of small bowel, and colon in the abdomen are normal in appearance. In the pelvis, the appendix is normal in appearance with no sign of inflammatory process. The loops of small bowel and colon in the pelvis are normal in appearance. The prostate remains moderately enlarged, measuring 5.3 centimeters in diameter. It is otherwise normal in appearance. The urinary bladder is normal in appearance. There is no sign of pelvic or inguinal mass or adenopathy. There is no change in variceal dilatation of veins in the left inguinal region of uncertain etiology. The lung bases are clear. The osseous structures are normal in appearance for the patient`s age. IMPRESSION: CT of the abdomen shows new moderate left hydronephrosis and proximal left hydroureter produced by a 6 x 9 millimeter calculus in the left proximal ureter at the superior L4 level. This calculus was previously in the lower pole of the left kidney. Resolution of previously seen mild right hydronephrosis and right hydroureter with passage of the right distal ureteral calculus. The dominant calculus previously seen in the lower pole of the right kidney is also no longer present. CT of the pelvis shows continued variceal dilatation of veins in the left inguinal region of uncertain etiology. No change in moderate enlargement of the prostate. Please note that all CT scans at this facility use dose modulation, iterative reconstruction, and/or weight-based dosing when appropriate to reduce radiation dose to as low as reasonably achievable. Dictated by Devante Duff MD @ Jan 23 2019 11:49PM Signed by Dr. Devante Duff @ Jan 24 2019 12:01AM
[2019-01-24] MEDS ORDERED: Tamsulosin 0.4 MG Cap.ER PO ONE (00:45)
[2019-01-24 01:35] VITALS: BP 158/83
== END 2019-01-24 01:17 | disposition home or self-care (01) ==
LOC: MW.ED 21:57
DX: N13.2 Hydronephrosis with renal and ureteral calculous obstruction (principal); Z86.718 Personal history of other venous thrombosis and embolism; Z88.1 Allergy status to other antibiotic agents; Z79.01 Long term (current) use of anticoagulants
CPT/HCPCS: 36415; 74176; 80053; 81001; 83690; 85025; 85610; 96361; 96374; 96375; 99284; A9270; J1885; J2270; J2405; J7040

== ENCOUNTER 2019-03-05 07:55 | Day surgery (SDC) | payer OTHER ==
[~2019-03-05 07:55] MED LIST: Lactated Ringers 1,000 ML IV SCH; Sodium Chloride 0.9% 10 ML SDV IV PRN; Sodium Chloride 0.9% 10 ML Syringe FLUSH PRN; Sodium Chloride 0.9% 2.5 ML Syringe FLUSH PRN
--- NOTE | 2019-03-05 08:35 | PCM.PREANE ---
Preanesthetic Assessment - Anesthesia/Transfusion/Family Hx Anesthesia History: Prior Anesthesia Without Reaction Family History of Anesthesia Reaction: No Transfusion History: No Prior Transfusion(s) - Review of Systems General: No Symptoms Pulmonary: No Symptoms Neurological: Pre-Existing Deficit Other: Reports: None - Physical Assessment NPO Status Date: 03/04/19 O2 Sat by Pulse Oximetry: 96 Respiratory Rate: 16 Vital Signs: Last Vital Signs Temp 97.3 F 03/05/19 08:06 Pulse 62 03/05/19 08:06 Resp 16 03/05/19 08:06 BP 137/87 03/05/19 08:06 Pulse Ox 96 03/05/19 08:06 Height: 5 ft 8 in Weight: 101.151 kg ASA Class: 3 Mental Status: Alert & Oriented x3 Airway Class: Mallampati = 2 Dentition: Reports: Normal Dentition ROM/Head Extension: Full Lungs: Clear to Auscultation, Normal Respiratory Effort Cardiovascular: Regular Rate, Regular Rhythm - Allergies Allergies/Adverse Reactions: Allergies Allergy/AdvReac Type Severity Reaction Status Date / Time ciprofloxacin Allergy Hives Verified 03/04/19 16:29 - Blood Blood Available: No - Anesthesia Plan Pre-Op Medication Ordered: None - Acknowledgements Anesthesia Type Planned: General Anesthesia Pt an Appropriate Candidate for the Planned Anesthesia: Yes Alternatives and Risks of Anesthesia Discussed w Pt/Guardian: Yes Pt/Guardian Understands and Agrees with Anesthesia Plan: Yes Additional Comments: anes prob list: KAREN- does not use CPAP- intolerant of device, takes gabipentin 1 tab hs and is on narcotics both of which can aggrevate KAREN. Discussed risks with pt, instruction sheet given, has been of coumadin for DVT- stopped 3 day ago anf bridged with lovenox- last dose 24 hr ago. 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) PreAnesthesia Questionnaire HEENT History: Other HEENT History: uses reading glasses, has upper removable partial denture , hx of fx nose Cardiovascular History: Reports: Blood Clots/VTE/DVT Other Cardiovascular History: had a DVT left leg- took anticoagulants for many months- off anticoagulants and had another DVT Respiratory History: Reports: Sleep Apnea Other Respiratory History: does not use CPAP Gastrointestinal History: Reports: Other (See Below) Other Gastrointestinal History: occasional heartburn, takes OTC meds Genitourinary History: Reports: Renal Calculus Other Genitourinary History: has passed several kidney stones Musculoskeletal History: Reports: Other (See Below) Other Musculoskeletal History: "lump" removed from chest Neurological History: Reports: Other (See Below) Other Neuro History: hx of Charcot Harriet Tooth, has restless legs Endocrine/Metabolic History: Reports: Obesity/BMI 30+ Hematologic History: Reports: Anticoagulation Therapy - Infectious Disease History Infectious Disease History: Reports: Chicken Pox - SUBSTANCE USE Smoking Status *Q: Never Smoker Recreational Drug Use History: No - HOME MEDS Home Medications: Home Meds Warfarin [Coumadin] 5 mg PO ASDIRECTED 01/17/17 [History] Gabapentin [Neurontin] 300 mg PO BEDTIME 01/23/19 [History] Tamsulosin HCl 0.4 mg PO DAILY 03/04/19 [History] - CURRENT (IN HOUSE) MEDS Current Meds: Current Medications Lactated Ringer's (Ringers, Lactated) 1,000 mls @ 100 mls/hr IV ASDIRECTED [facility] Last Admin: 03/05/19 08:15 Dose: 100 mls/hr Sodium Chloride (Saline Flush) 10 ml FLUSH ASDIRECTED PRN PRN Reason: Keep Vein Open Sodium Chloride (Saline Flush) 2.5 ml FLUSH ASDIRECTED PRN PRN Reason: Keep Vein Open Sodium Chloride (Normal Saline) 10 ml IV ASDIRECTED PRN PRN Reason: IV Use
[2019-03-05] MEDS ORDERED: Ondansetron 4 MG/2 ML SDV ONE (09:16)
[2019-03-05] MEDS ORDERED: Dexamethasone 4 MG/ML 5 ML MDV ONE (09:16)
[2019-03-05] MEDS ORDERED: Rocuronium 100 MG/10 ML Syringe ONE (09:16)
[2019-03-05] MEDS ORDERED: Lidocaine 2% 5 ML SDV ONE (09:16)
[2019-03-05] MEDS ORDERED: Midazolam 1 MG/ML 2 ML SDV ONE (09:17)
[2019-03-05] MEDS ORDERED: fentaNYL 250 MCG/5 ML SDV ONE (09:17)
[2019-03-05] MEDS ORDERED: Propofol 200 MG/20 ML SDV ONE (09:17)
[2019-03-05] MEDS ORDERED: ePHEDrine 50 MG/ML SDV ONE (09:43)
[2019-03-05] MEDS ORDERED: Neostigmine Methylsulfate 1 MG/ML 5 ML Syringe ONE (09:52)
[2019-03-05] MEDS ORDERED: Glycopyrrolate 0.2 MG/ML SDV ONE ×2 (09:52)
--- NOTE | 2019-03-05 09:56 | CR ---
Indication: Left ureteral stone Technique: KUB 1 view Comparison: February 16, 2019 Findings/Impression: Soft tissues: 8 mm stone in the mid left ureter has minimally progressed since the prior exam. No other suspicious calcifications. No sign of free air. No sign of soft tissue mass. Other: No other acute or significant findings. Dictated by Apollo Christine MD @ Mar 05 2019 9:43AM Signed by Dr. Apollo Christine @ Mar 05 2019 9:54AM
[2019-03-05] MEDS ORDERED: Iopamidol 200-M 10 ML vial ITHECAL ONE ×2 (10:21→15:07)
[2019-03-05] MEDS ORDERED: Warfarin 5 MG Tab PO SCH (10:45)
[2019-03-05] MEDS ORDERED: Ketorolac 30 MG/ML SDV ONE (10:50)
[2019-03-05 11:31] VITALS: BP 152/74; PULSE 69
--- NOTE | 2019-03-05 11:40 | PCM.POSTAN ---
POST ANESTHESIA ASSESSMENT - MENTAL STATUS Mental Status: Alert, Oriented - RESPIRATORY Respiratory Status: Respiratory Rate WNL, Airway Patent, O2 Saturation Stable - CARDIOVASCULAR CV Status: Pulse Rate WNL, Blood Pressure Stable - GASTROINTESTINAL GI Status: No Symptoms - POST OP HYDRATION Hydration Status: Adequate & Stable
--- NOTE | 2019-03-05 11:40 | PCM48HPAN ---
Post Anesthesia Note - EVALUATION WITHIN 48HRS OF ANESTHETIC Vital Signs in Normal Range: Yes Patient Participated in Evaluation: Yes Respiratory Function Stable: Yes Airway Patent: Yes Cardiovascular Function Stable: Yes Hydration Status Stable: Yes Pain Control Satisfactory: Yes Nausea and Vomiting Control Satisfactory: Yes Mental Status Recovered: Yes Resp Rate: 16
[2019-03-05] MEDS ORDERED: Gabapentin 300 MG Cap PO SCH (21:00)
[2019-03-06] MEDS ORDERED: Tamsulosin 0.4 MG Cap.ER PO SCH (09:00)
--- NOTE | 2019-03-12 22:19 | OR ---
SURGEON: Erin Matias M.D. DATE OF PROCEDURE: 03/05/2019 PREOPERATIVE DIAGNOSIS: A 5.7 mm left upper ureteral stone. POSTOPERATIVE DIAGNOSIS: A 5.7 mm left upper ureteral stone. OPERATION: Extracorporeal shock-wave lithotripsy plus cystoscopy and double-J stent placement. DESCRIPTION OF PROCEDURE: The patient is placed on the lithotripsy table. The position of the patient was adjusted so the stone could be treated, and eventually received a total of 2500 shocks. The stone broke in pieces, but the pieces were too large to pass, so the patient was then placed in dorsal lithotomy position, prepped and draped with sterile drapes. Cystoscopy was done, that was unremarkable. A guidewire was advanced in the left ureter alongside the stone, over which a 6-Australian 26 cm double-J stent was placed. Position was confirmed with fluoroscopy. The bladder was emptied, and the patient was moved to recovery room in good condition. MAXINE / PAULY /[id number]
== END 2019-03-05 11:50 | disposition home or self-care (01) ==
LOC: MW.SDS 07:55
PROVIDERS: ATTEND Urology
DX: N20.1 Calculus of ureter (principal); N40.0 Benign prostatic hyperplasia without lower urinary tract symptoms; G47.33 Obstructive sleep apnea (adult) (pediatric); Z88.1 Allergy status to other antibiotic agents; Z87.891 Personal history of nicotine dependence; Z79.01 Long term (current) use of anticoagulants; Z79.899 Other long term (current) drug therapy
CPT/HCPCS: 50590; 52332; 74018; C1769; C2617; J1100; J2001; J2250; J2405; J2704; J3010; J3490; J7120; 00873; Q9966

== ENCOUNTER 2019-03-12 06:24 | Day surgery (SDC) | payer OTHER ==
[~2019-03-12 06:24] MED LIST changes: -Lactated Ringers 1,000 ML IV SCH; +ceFAZolin 2 GM in Premix Bag 1 BAG IV SCH
--- NOTE | 2019-03-12 07:07 | PCM.PREANE ---
Preanesthetic Assessment - Anesthesia/Transfusion/Family Hx Anesthesia History: Prior Anesthesia Without Reaction Type of Anesthesia Reaction: Other (see below) (sore throat after GETA 6 days ago) Family History of Anesthesia Reaction: No Transfusion History: No Prior Transfusion(s) Intubation History: Unknown - Review of Systems General: No Symptoms Pulmonary: No Symptoms Cardiovascular: No Symptoms Gastrointestinal: Abdominal Pain Neurological: No Symptoms Other: Reports: None - Physical Assessment O2 Sat by Pulse Oximetry: 95 Respiratory Rate: 16 Vital Signs: Last Vital Signs Temp 36.1 C 03/12/19 06:58 Pulse 60 03/12/19 06:58 Resp 16 03/12/19 06:58 BP 144/78 H 03/12/19 06:58 Pulse Ox 95 03/12/19 06:58 Height: 5 ft 8 in Weight: 103.419 kg ASA Class: 3 Mental Status: Alert & Oriented x3 Airway Class: Mallampati = 2 Dentition: Reports: Partial (upper) Thyro-Mental Finger Breadths: 3 Mouth Opening Finger Breadths: 2 ROM/Head Extension: Limited/Partial Lungs: Clear to Auscultation, Normal Respiratory Effort Cardiovascular: Regular Rate, Regular Rhythm - Allergies Allergies/Adverse Reactions: Allergies Allergy/AdvReac Type Severity Reaction Status Date / Time ciprofloxacin Allergy Hives Verified 03/10/19 07:14 - Blood Blood Available: No - Anesthesia Plan Pre-Op Medication Ordered: None - Acknowledgements Anesthesia Type Planned: General Anesthesia Pt an Appropriate Candidate for the Planned Anesthesia: Yes Alternatives and Risks of Anesthesia Discussed w Pt/Guardian: Yes Pt/Guardian Understands and Agrees with Anesthesia Plan: Yes PreAnesthesia Questionnaire HEENT History: Other HEENT History: uses reading glasses, has upper removable partial denture , hx of fx nose Cardiovascular History: Reports: Blood Clots/VTE/DVT Other Cardiovascular History: had a DVT left leg- took anticoagulants for many months- off anticoagulants and had another DVT, off coumadin since saturday- placed on sc. heparin saturday and saturday Respiratory History: Reports: Sleep Apnea Other Respiratory History: does not use CPAP Gastrointestinal History: Reports: Other (See Below) Other Gastrointestinal History: occasional heartburn, takes OTC meds Genitourinary History: Reports: BPH, Renal Calculus Other Genitourinary History: has passed several kidney stones Musculoskeletal History: Reports: Other (See Below) Other Musculoskeletal History: "lump" removed from chest Neurological History: Reports: Neuropathy, Peripheral, Other (See Below) Other Neuro History: hx of Charcot Harriet Tooth, has restless legs Psychiatric History: Reports: None Endocrine/Metabolic History: Reports: Obesity/BMI 30+ Hematologic History: Reports: Anticoagulation Therapy Immunologic History: Reports: None Oncologic (Cancer) History: Reports: None Dermatologic History: Reports: Other (See Below) (stasis dermatiits from DVT) - Infectious Disease History Infectious Disease History: Reports: Chicken Pox - Past Surgical History Head Surgeries/Procedures: Reports: None Other Female Surgeries/Procedures: left extracorpeal shockwave lithotripsy with double J stent placement on 03/05/19 Male Surgical History: Reports: Lithotripsy (ESWL) ( 6 days ago) - SUBSTANCE USE Smoking Status *Q: Never Smoker Recreational Drug Use History: No - HOME MEDS Home Medications: Home Meds Warfarin [Coumadin] 5 mg PO ASDIRECTED 01/17/17 [History] Enoxaparin [Lovenox] 1 injection SUBCUT DAILY 03/10/19 [History] Hydrocodone/Acetaminophen [Hydrocodon-Acetaminophen 5-325] 1 tab PO ASDIRECTED PRN 03/10/19 [History] - CURRENT (IN HOUSE) MEDS Current Meds: Current Medications Cefazolin Sodium/Dextrose 2 gm (/ Premix) 50 mls @ 100 mls/hr IV ONCALL CELSA Sodium Chloride (Saline Flush) 10 ml FLUSH ASDIRECTED PRN PRN Reason: Keep Vein Open Sodium Chloride (Saline Flush) 2.5 ml FLUSH ASDIRECTED PRN PRN Reason: Keep Vein Open Sodium Chloride (Normal Saline) 10 ml IV ASDIRECTED PRN PRN Reason: IV Use
[2019-03-12] MEDS ORDERED: Lidocaine 2% 5 ML SDV ONE (07:41)
[2019-03-12] MEDS ORDERED: Ondansetron 4 MG/2 ML SDV ONE (07:41)
[2019-03-12] MEDS ORDERED: Midazolam 1 MG/ML 2 ML SDV ONE (07:42)
[2019-03-12] MEDS ORDERED: Propofol 200 MG/20 ML SDV ONE (07:42)
[2019-03-12] MEDS ORDERED: fentaNYL 250 MCG/5 ML SDV ONE (07:42)
[2019-03-12] MEDS ORDERED: Iopamidol 200-M 10 ML vial ITHECAL ONE (07:49)
[2019-03-12] MEDS ORDERED: ceFAZolin 1 GM Vial ONE (08:25)
[2019-03-12] MEDS ORDERED: ePHEDrine 50 MG/ML SDV ONE (08:36)
[2019-03-12] MEDS ORDERED: Naloxone 0.4 MG/ML Syringe IVPUSH PRN (08:54)
[2019-03-12] MEDS ORDERED: fentaNYL 100 MCG/2 ML SDV IVPUSH PRN (08:54)
[2019-03-12] MEDS ORDERED: 50% Dextrose in Water 50 ML Syringe IVPUSH PRN (08:54)
[2019-03-12] MEDS ORDERED: Albuterol 0.083% 2.5 MG/3 ML Neb Soln NEB PRN (08:54)
[2019-03-12] MEDS ORDERED: EPINEPHrine 1:10,000 1 MG/10 ML Syringe IVPUSH PRN (08:54)
[2019-03-12] MEDS ORDERED: Atropine 0.1 MG/ML 10 ML Syringe IVPUSH PRN ×2 (08:54)
[2019-03-12] MEDS ORDERED: Acetaminophen/HYDROcodone 325-5 MG Tab PO PRN (09:38)
[2019-03-12] MEDS ORDERED: Warfarin 5 MG Tab PO SCH (09:45)
[2019-03-12 10:45] VITALS: BP 183/91; PULSE 89
--- NOTE | 2019-03-12 14:44 | OR ---
SURGEON: Erin Matias M.D. DATE OF PROCEDURE: 03/12/2019 PREOPERATIVE DIAGNOSIS: Residual stones in the left upper ureter. POSTOPERATIVE DIAGNOSIS: Residual stones in the left upper ureter. OPERATION: Cystoscopy, double-J stent removal, renoscopy, ureteroscopy, and removal of all stones. DESCRIPTION OF PROCEDURE: The patient was given general anesthesia. He was in the dorsal lithotomy position, prepped and draped in sterile drapes. Cystourethroscopy was done. The existing double-J stent was partially pulled out through which a guidewire was advanced all the up into the renal pelvis alongside the stone. With that done, a Glidewire was also advanced into the left ureter all the way up into the renal pelvis. The Glidewire was secured in place and the flexible ureteroscope was advanced over the guidewire all the way up into the renal pelvis. The smaller piece in the renal pelvis then broken up into a multitude of tiny pieces and a fair amount of dust. The larger stone in the ureter was then treated with laser to be made smaller enough so it would fit into the Zero Tip basket and it was then pulled out. At the end, the flexible ureteroscope was advanced over the Glidewire and the ureter was inspected for any additional stones, none were found. With that done, the procedure was terminated. The bladder was emptied and the patient was moved to recovery room in good condition. MAXINE / PAULY /[id number]
--- NOTE | 2019-03-13 11:09 | CR ---
INDICATION: Cystoscopy with double-J stent removal. Ureteroscopy with laser lithotripsy on the left. COMPARISON: Plain film of the abdomen from 03/05/2019 FINDINGS: Two views from intraoperative fluoroscopy are submitted. A total of 13.0 seconds of fluoroscopic time was used. The initial image shows positioning of a guidewire with its tip in the area of the distal ureter at the inferior L2 level. Three small calculus fragments are seen along the guidewire, 2 at the L2-3 level and the larger fragment at the inferior L3 level. The final image shows placement of a catheter over the guidewire with the tip at the mid L3 level. There is no sign of any residual calculus fragments in the field of view from the inferior L1 level through the inferior L4 level. IMPRESSION: Placement of guidewire and catheter in the left superior ureter. No sign of any calculus fragments on the final image. Dictated by Devante Duff MD @ Mar 13 2019 11:03AM Signed by Dr. Devante Duff @ Mar 13 2019 11:07AM
== END 2019-03-12 10:44 | disposition home or self-care (01) ==
LOC: MW.SDS 06:24
PROVIDERS: ATTEND Urology
DX: N20.1 Calculus of ureter (principal); G47.10 Hypersomnia, unspecified; G47.33 Obstructive sleep apnea (adult) (pediatric); N40.1 Benign prostatic hyperplasia with lower urinary tract symptoms; R35.0 Frequency of micturition; G25.81 Restless legs syndrome; E66.9 Obesity, unspecified; Z68.34 Body mass index [BMI] 34.0-34.9, adult; Z99.89 Dependence on other enabling machines and devices; Z98.890 Other specified postprocedural states; Z87.891 Personal history of nicotine dependence; Z88.1 Allergy status to other antibiotic agents; Z79.01 Long term (current) use of anticoagulants; Z79.899 Other long term (current) drug therapy
CPT/HCPCS: 52353; 76000; J0690; J2001; J2250; J2405; J2704; J3010; 00918; 88300; C1769; Q9966

== ENCOUNTER 2020-06-25 10:07 | Observation (INO) | payer OTHER ==
--- NOTE | 2020-06-25 10:13 | EDM.PDOC ---
ED HPI GENERAL MEDICAL PROBLEM - General Stated Complaint: BLOOD CLOT L/ LEG Time Seen by Provider: 06/25/20 10:09 Source of Information: Reports: Patient History Limitations: Reports: No Limitations - History of Present Illness INITIAL COMMENTS - FREE TEXT/NARRATIVE: HISTORY AND PHYSICAL: History of present illness: Patient is a 60-year-old male who presents to the emergency room with complaints of left calf pain since last evening. He has a longstanding history of DVTs, stating his first DVT was approximately 8 years ago with his last DVT being approximately 6 years ago. He states he has been on Coumadin consistently over the past 8 years, compliant with medication regiment. His primary care provider is Dr. Whelan, routinely has his PT/INR's assessed. Has not had any recent adjustments in his dosage of Coumadin. He is here today as he is concerned he may have a DVT in the left calf as he has muscle soreness and tenderness with palpation. He denies any injury, trauma or falls. He denies any numbness, tingling, saddle paresthesia or weakness of the extremity. Patient denies any fever, chills, headache, change in vision, syncope or near syncope. Denies any chest pain, back pain, shortness of breath or cough. Denies any GI or symptoms. Review of systems: As per history of present illness and below otherwise all systems reviewed and negative. Past medical history: As per history of present illness and as reviewed below otherwise noncontributory. Surgical history: As per history of present illness and as reviewed below otherwise noncontributory. Social history: See social history for further information Family history: As per history of present illness and as reviewed below otherwise noncontributory. Physical exam: General: Well developed and well nourished. Alert and orientated x 3. Nontoxic in appearance and in no acute distress. Vital signs are stable and have been reviewed by me. Nursing notes were reviewed. HEENT: Atraumatic, normocephalic, pupils equal and reactive bilaterally, negative for conjunctival pallor or scleral icterus, mucous membranes moist, TMs normal bilaterally, throat clear, neck supple, nontender, trachea midline. No drooling or trismus noted. No meningeal signs. No hot potato voice noted. Lungs: Clear to auscultation, breath sounds equal bilaterally, chest nontender. Normal work of breathing, no accessory muscles used. Heart: S1S2, regular rate and rhythm without overt murmur Abdomen: Soft, nondistended, nontender. Negative for masses or hepatosplenomegaly. Negative for costovertebral tenderness. Skin: Intact, warm, dry. No localized area of redness, warmth. No lesions or rashes noted. Hematologic: No petechiae or purpra. Mucosa appropriate color and normal nail bed color and refill. Extremities: Atraumatic, moves all extremities per self without difficulty or deficits, mild left posterior calf pain with palpation. Left leg appears larger than right. Left calf measures 44 cm, right calf measures 38 cm. Strong pedal and pretibial pulses bilaterally. +Cap refill to bilat LE. Bilateral +CMS. Neurovascular unremarkable. Neuro: Awake, alert, oriented. Cranial nerves II through XII unremarkable. Cerebellum unremarkable. Motor and sensory unremarkable throughout. Exam nonfocal. Psychiatric: Mood and affect are appropriate. Normal thought process. Answering questions appropriately. Notes: Lab work is unremarkable. INR 2.58, on Coumadin therapy. Ultrasound shows a DVT in the left common femoral and superficial femoral veins. *Left calf measures 44cm, right calf measures 38cm. I have talked with the patient about today's findings, in addition to providing specific details for plan of care. Reassessment at the time of disposition demonstrates that the patient is in no acute distress. He is aware of the further need of care and is agreeable to admission. Dr Chong was consulted on this case and will accept patient for further care and management. At this time will give Lovenox and Castillo will assess need for Heparin/dosage. Diagnostics: Venous U/S, CBC, CMP, INR, COVID Therapeutics: Lovenox Impression: DVT of left LE Plan: Observation admission to Med/Surg Definitive disposition and diagnosis as appropriate pending reevaluation and review of above. Duration: Day(s): Location: Reports: Lower Extremity, Left - Related Data Allergies Allergy/AdvReac Type Severity Reaction Status Date / Time ciprofloxacin Allergy Hives Verified 06/25/20 10:17 Home Meds: Home Meds Warfarin [Coumadin] 5 mg PO ASDIRECTED 01/17/17 [History] Gabapentin [Neurontin] 1 tab PO BEDTIME 06/25/20 [History] Past Medical History HEENT History: Other HEENT History: uses reading glasses, has upper removable partial denture, hx of fx nose Cardiovascular History: Reports: Blood Clots/VTE/DVT Other Cardiovascular History: had a DVT left leg- took anticoagulants for many months- off anticoagulants and had another DVT, off coumadin since saturday- placed on sc. heparin saturday and saturday Respiratory History: Reports: Sleep Apnea Other Respiratory History: does not use CPAP Gastrointestinal History: Reports: Other (See Below) Other Gastrointestinal History: occasional heartburn, takes OTC meds Genitourinary History: Reports: BPH, Renal Calculus Other Genitourinary History: has passed several kidney stones Musculoskeletal History: Reports: Other (See Below) Other Musculoskeletal History: "lump" removed from chest Neurological History: Reports: Neuropathy, Peripheral, Other (See Below) Other Neuro History: hx of Charcot Harriet Tooth, has restless legs Psychiatric History: Reports: None Endocrine/Metabolic History: Reports: Obesity/BMI 30+ Hematologic History: Reports: Anticoagulation Therapy Immunologic History: Reports: None Oncologic (Cancer) History: Reports: None Dermatologic History: Reports: Other (See Below) (stasis dermatiits from DVT) - Infectious Disease History Infectious Disease History: Reports: Chicken Pox - Past Surgical History Head Surgeries/Procedures: Reports: None Other Female Surgeries/Procedures: left extracorpeal shockwave lithotripsy with double J stent placement on 03/05/19 Male Surgical History: Reports: Lithotripsy (ESWL) ( 6 days ago) Social & Family History - Family History Family Medical History: No Pertinent Family History - Caffeine Use Caffeine Use: Reports: None ED ROS GENERAL - Review of Systems Review Of Systems: Comprehensive ROS is negative, except as noted in HPI. ED EXAM,LOWER BACK PAIN/INJURY - Physical Exam Exam: See Below (See dictation) Course - Vital Signs Last Recorded V/S: Last Vital Signs Temp 97.4 F 06/25/20 10:14 Pulse 68 06/25/20 10:14 Resp 18 06/25/20 10:14 BP 146/68 H 06/25/20 10:14 Pulse Ox 95 06/25/20 10:14 - Orders/Labs/Meds Orders: Active Orders 24 hr Category Date Time Status Admission Status [Patient Status] [ADT] Stat ADT 06/25/20 12:10 Active Communication Order [RC] STAT Care 06/25/20 10:46 Active Sodium Chloride 0.9% [Saline Flush] Med 06/25/20 12:12 Active 10 ml FLUSH ASDIRECTED PRN Sodium Chloride 0.9% [Saline Flush] Med 06/25/20 12:12 Active 2.5 ml FLUSH ASDIRECTED PRN Saline Lock Insert [OM.PC] Stat Oth 06/25/20 12:12 Ordered Medication Orders Sodium Chloride (Saline Flush) 10 ml FLUSH ASDIRECTED PRN PRN Reason: Keep Vein Open Sodium Chloride (Saline Flush) 2.5 ml FLUSH ASDIRECTED PRN PRN Reason: Keep Vein Open Labs: Laboratory Tests 06/25/20 06/25/20 06/25/20 Range/Units 10:31 10:31 10:31 WBC 5.35 (4.0-11.0) K/uL RBC 4.82 (4.50-5.90) M/uL Hgb 14.8 (13.0-17.0) g/dL Hct 45.4 (38.0-50.0) % MCV 94.2 (80.0-98.0) fL MCH 30.7 (27.0-32.0) pg MCHC 32.6 (31.0-37.0) g/dL RDW Std Deviation 45.0 (28.0-62.0) fl RDW Coeff of Lewis 13 (11.0-15.0) % Plt Count 239 (150-400) K/uL MPV 10.20 (7.40-12.00) fL Neut % (Auto) 58.5 (48.0-80.0) % Lymph % (Auto) 25.2 (16.0-40.0) % [place] % (Auto) 6.9 (0.0-15.0) % Eos % (Auto) 8.8 H (0.0-7.0) % Baso % (Auto) 0.6 (0.0-1.5) % Neut # (Auto) 3.1 (1.4-5.7) K/uL Lymph # (Auto) 1.4 (0.6-2.4) K/uL [place] # (Auto) 0.4 (0.0-0.8) K/uL Eos # (Auto) 0.5 (0.0-0.7) K/uL Baso # (Auto) 0.0 (0.0-0.1) K/uL Nucleated RBC % 0.0 /100WBC Nucleated RBCs # 0 K/uL INR 2.58 Sodium 142 (136-148) mmol/L Potassium 4.3 (3.5-5.1) mmol/L Chloride 108 H (98-107) mmol/L Carbon Dioxide 27.9 (21.0-32.0) mmol/L BUN 15 (7.0-18.0) mg/dL Creatinine 0.9 (0.8-1.3) mg/dL Est Cr Clr Drug Dosing 82.33 mL/min Estimated GFR (MDRD) > 60.0 ml/min Glucose 101 (74-106) mg/dL Calcium 8.4 L (8.5-10.1) mg/dL Total Bilirubin 0.5 (0.2-1.0) mg/dL AST 19 (15-37) IU/L ALT 22 (14-63) IU/L Alkaline Phosphatase 74 (46-116) U/L Total Protein 7.1 (6.4-8.2) g/dL Albumin 3.4 (3.4-5.0) g/dL Globulin 3.7 (2.6-4.0) g/dL Albumin/Globulin Ratio 0.9 (0.9-1.6) SARS-CoV-2 RNA (VEENA) (NEGATIVE) 06/25/20 Range/Units 12:35 WBC (4.0-11.0) K/uL RBC (4.50-5.90) M/uL Hgb (13.0-17.0) g/dL Hct (38.0-50.0) % MCV (80.0-98.0) fL MCH (27.0-32.0) pg MCHC (31.0-37.0) g/dL RDW Std Deviation (28.0-62.0) fl RDW Coeff of Lewis (11.0-15.0) % Plt Count (150-400) K/uL MPV (7.40-12.00) fL Neut % (Auto) (48.0-80.0) % Lymph % (Auto) (16.0-40.0) % [place] % (Auto) (0.0-15.0) % Eos % (Auto) (0.0-7.0) % Baso % (Auto) (0.0-1.5) % Neut # (Auto) (1.4-5.7) K/uL Lymph # (Auto) (0.6-2.4) K/uL [place] # (Auto) (0.0-0.8) K/uL Eos # (Auto) (0.0-0.7) K/uL Baso # (Auto) (0.0-0.1) K/uL Nucleated RBC % /100WBC Nucleated RBCs # K/uL INR Sodium (136-148) mmol/L Potassium (3.5-5.1) mmol/L Chloride (98-107) mmol/L Carbon Dioxide (21.0-32.0) mmol/L BUN (7.0-18.0) mg/dL Creatinine (0.8-1.3) mg/dL Est Cr Clr Drug Dosing mL/min Estimated GFR (MDRD) ml/min Glucose (74-106) mg/dL Calcium (8.5-10.1) mg/dL Total Bilirubin (0.2-1.0) mg/dL AST (15-37) IU/L ALT (14-63) IU/L Alkaline Phosphatase (46-116) U/L Total Protein (6.4-8.2) g/dL Albumin (3.4-5.0) g/dL Globulin (2.6-4.0) g/dL Albumin/Globulin Ratio (0.9-1.6) SARS-CoV-2 RNA (VEENA) NEGATIVE (NEGATIVE) Meds: Medications Generic Name Dose Route Start Last Admin Trade Name Freq PRN Reason Stop Dose Admin Sodium Chloride 10 ml 06/25/20 12:12 Saline Flush FLUSH ASDIRECTED PRN Keep Vein Open Sodium Chloride 2.5 ml 06/25/20 12:12 Saline Flush FLUSH ASDIRECTED PRN Keep Vein Open Discontinued Medications Generic Name Dose Route Start Last Admin Trade Name Freq PRN Reason Stop Dose Admin Enoxaparin Sodium 97 mg 06/25/20 12:11 06/25/20 13:36 Lovenox SUBCUT 06/25/20 12:12 97 mg ONETIME ONE Administration Departure - Departure Time of Disposition: 13:48 Disposition: Refer to Observation Clinical Impression: DVT (deep venous thrombosis) Qualifiers: DVT location: lower extremity Affected thrombotic vein of extremity: femoral Chronicity: acute Laterality: left Qualified Code(s): I82.412 - Acute embolism and thrombosis of left femoral vein - Discharge Information Referrals: Marcin Whelan MD [Primary Care Provider] - Sepsis Event Note (ED) - Focused Exam Vital Signs: Vital Signs Temp Pulse Resp BP Pulse Ox 06/25/20 10:14 97.4 F 68 18 146/68 H 95 - My Orders Last 24 Hours: My Active Orders 06/25/20 10:46 Communication Order [RC] STAT 06/25/20 12:10 Admission Status [Patient Status] [ADT] Stat 06/25/20 12:12 Sodium Chloride 0.9% [Saline Flush] 10 ml FLUSH ASDIRECTED PRN Sodium Chloride 0.9% [Saline Flush] 2.5 ml FLUSH ASDIRECTED PRN Saline Lock Insert [OM.PC] Stat - Assessment/Plan Last 24 Hours: My Active Orders 06/25/20 10:46 Communication Order [RC] STAT 06/25/20 12:10 Admission Status [Patient Status] [ADT] Stat 06/25/20 12:12 Sodium Chloride 0.9% [Saline Flush] 10 ml FLUSH ASDIRECTED PRN Sodium Chloride 0.9% [Saline Flush] 2.5 ml FLUSH ASDIRECTED PRN Saline Lock Insert [OM.PC] Stat
[2020-06-25 11:02] LABS: BLOOD UREA NITROGEN,BUN 15 mg/dL (7.0-18.0); CARBON DIOXIDE,CO2 27.9 mmol/L (21.0-32.0); CHLORIDE,CL 108 mmol/L (98-107); GLUCOSE RANDOM 101 mg/dL (74-106); POTASSIUM,K 4.3 mmol/L (3.5-5.1); SODIUM,NA 142 mmol/L (136-148)
--- NOTE | 2020-06-25 11:58 | US ---
INDICATION: Calf pain. FINDINGS: A left lower extremity DVT ultrasound was performed using grayscale imaging as well as color and spectral Doppler analysis. Thrombus in the left common femoral and superficial femoral veins. Normal compressibility of the left popliteal vein. Impression : 1. DVT in the left common femoral and superficial femoral veins. Note: Findings discussed with and acknowledged by Dr. Ken on 25 June 2020 at 1155 hours. Dictated by Howard Crawley MD @ Jun 25 2020 11:48AM Signed by Dr. Howard Crawley @ Jun 25 2020 11:55AM
[2020-06-25] MEDS ORDERED: Enoxaparin 100 MG/1 ML Syringe SUBCUT ONE (12:11)
[2020-06-25] MEDS ORDERED: Sodium Chloride 0.9% 2.5 ML Syringe FLUSH PRN (12:12)
[2020-06-25] MEDS ORDERED: Sodium Chloride 0.9% 10 ML Syringe FLUSH PRN (12:12)
[2020-06-25] MEDS ORDERED: Acetaminophen 325 MG Tab PO PRN (14:32)
[2020-06-25] MEDS ORDERED: Ondansetron 4 MG/2 ML SDV IVPUSH PRN (14:32)
--- NOTE | 2020-06-25 14:46 | PCM.HP.2 ---
H&P History of Present Illness - General Date of Service: 06/25/20 Admit Problem/Dx: Admission Diagnosis/Problem Admission Diagnosis/Problem DVT, Deep venous thrombosis of lower extremity Source of Information: Patient History Limitations: Reports: No Limitations - History of Present Illness Initial Comments - Free Text/Narative: 60-year-old male presented complaining of worsening left leg swelling and calf pain. 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 He is on chronic warfarin therapy and regularly follows-up with his PCP. His INR is checked regularly and is usually in the therapeutic range. Yesterday evening, he noticed pain in his left calf and worsening leg swelling. His left leg is always more swollen than his right but he noticed it was more swollen than usual. He then came to the hospital as he was concerned of having another blood clot. Patient reports first being diagnosed with DVT approximately 8 years ago. He reports having extensive blood work done to discover the reason for his clots, however, was told that all testing came back negative. After being diagnosed with his second DVT a few years ago, he was told that he would have to be on warfarin indefinitely. He denies having any fevers, chills, sore throat, cough, SOB, chest pain, nausea, vomiting, abdominal pain, diarrhea, blood in stool or blood in urine. In the ER, CBC and CMP unremarkable, INR 2.58, covid-19 test negative. LLE U/S showed DVT in left common femoral vein and superficial femoral veins. Patient was given lovenox 97 mg subcut and admitted for further evaluation. - Related Data Allergies/Adverse Reactions: Allergies Allergy/AdvReac Type Severity Reaction Status Date / Time ciprofloxacin Allergy Hives Verified 06/25/20 14:49 Home Medications: Home Meds Warfarin [Coumadin] 5 mg PO ASDIRECTED 01/17/17 [History] Gabapentin [Neurontin] 1 tab PO BEDTIME 06/25/20 [History] Warfarin [Coumadin] 2.5 mg PO ASDIRECTED 06/25/20 [History] Past Medical History HEENT History: Other HEENT History: uses reading glasses, has upper removable partial denture, hx of fx nose Cardiovascular History: Reports: Blood Clots/VTE/DVT Other Cardiovascular History: had a DVT left leg- took anticoagulants for many months- off anticoagulants and had another DVT, off coumadin since saturday- place d on sc. heparin saturday and saturday Respiratory History: Reports: Sleep Apnea Other Respiratory History: does not use CPAP Gastrointestinal History: Reports: Other (See Below) Other Gastrointestinal History: occasional heartburn, takes OTC meds Genitourinary History: Reports: BPH, Renal Calculus Other Genitourinary History: has passed several kidney stones Musculoskeletal History: Reports: Other (See Below) Other Musculoskeletal History: "lump" removed from chest Neurological History: Reports: Neuropathy, Peripheral, Other (See Below) Other Neuro History: hx of Charcot Harriet Tooth, has restless legs Psychiatric History: Reports: None Endocrine/Metabolic History: Reports: Obesity/BMI 30+ Hematologic History: Reports: Anticoagulation Therapy Immunologic History: Reports: None Oncologic (Cancer) History: Reports: None Dermatologic History: Reports: Other (See Below) (stasis dermatiits from DVT) - Infectious Disease History Infectious Disease History: Reports: Chicken Pox - Past Surgical History Head Surgeries/Procedures: Reports: None Other Female Surgeries/Procedures: left extracorpeal shockwave lithotripsy with double J stent placement on 03/05/19 Male Surgical History: Reports: Lithotripsy (ESWL) ( 6 days ago) Social & Family History - Family History Family Medical History: No Pertinent Family History - Tobacco Use Tobacco Use Status *Q: Former Tobacco User Used Tobacco, but Quit: Yes Month/Year Tobacco Last Used: 1991 - Caffeine Use Caffeine Use: Reports: Soda - Alcohol Use Days Per Week of Alcohol Use: 5 Number of Drinks Per Day: 1 Total Drinks Per Week: 5 - Recreational Drug Use Recreational Drug Use: No H&P Review of Systems - Review of Systems: Review Of Systems: Comprehensive ROS is negative, except as noted in HPI. Exam - Exam Exam: See Below - Vital Signs Vital Signs: Last Vital Signs Temp 36.3 C 06/25/20 10:14 Pulse 65 06/25/20 13:00 Resp 17 06/25/20 13:00 BP 146/83 H 06/25/20 13:00 Pulse Ox 96 06/25/20 13:00 Weight: 97.522 kg - Exam General: Alert, Oriented, Cooperative, Other (NAD) HEENT: Conjunctiva Clear, EOMI, Hearing Intact, Pupils Equal, Pupils Reactive Neck: Supple, Trachea Midline Lungs: Clear to Auscultation, Normal Respiratory Effort Cardiovascular: Regular Rate, Regular Rhythm GI/Abdominal Exam: Normal Bowel Sounds, Soft, Non-Tender, No Distention Extremities: Other (LLE: Left calf appears larger than right. No erythema. Mild ttp on light palpation.) Peripheral Pulses: 2+: Radial (L), Radial (R), Dorsalis Pedis (L), Dorsalis Pedis (R) Skin: Warm, Dry, Intact Neurological: Cranial Nerves Intact, Strength Equal Bilateral, Normal Speech, Normal Tone Neuro Extensive - Mental Status: Alert, Oriented x3, Normal Mood/Affect Psychiatric: Alert, Normal Affect, Normal Mood - Patient Data Lab Results Last 24 hrs: Laboratory Results - last 24 hr 06/25/20 06/25/20 06/25/20 Range/Units 10:31 10:31 10:31 WBC 5.35 (4.0-11.0) K/uL RBC 4.82 (4.50-5.90) M/uL Hgb 14.8 (13.0-17.0) g/dL Hct 45.4 (38.0-50.0) % MCV 94.2 (80.0-98.0) fL MCH 30.7 (27.0-32.0) pg MCHC 32.6 (31.0-37.0) g/dL RDW Std Deviation 45.0 (28.0-62.0) fl RDW Coeff of Lewis 13 (11.0-15.0) % Plt Count 239 (150-400) K/uL MPV 10.20 (7.40-12.00) fL Neut % (Auto) 58.5 (48.0-80.0) % Lymph % (Auto) 25.2 (16.0-40.0) % [place] % (Auto) 6.9 (0.0-15.0) % Eos % (Auto) 8.8 H (0.0-7.0) % Baso % (Auto) 0.6 (0.0-1.5) % Neut # (Auto) 3.1 (1.4-5.7) K/uL Lymph # (Auto) 1.4 (0.6-2.4) K/uL [place] # (Auto) 0.4 (0.0-0.8) K/uL Eos # (Auto) 0.5 (0.0-0.7) K/uL Baso # (Auto) 0.0 (0.0-0.1) K/uL Nucleated RBC % 0.0 /100WBC Nucleated RBCs # 0 K/uL INR 2.58 Sodium 142 (136-148) mmol/L Potassium 4.3 (3.5-5.1) mmol/L Chloride 108 H (98-107) mmol/L Carbon Dioxide 27.9 (21.0-32.0) mmol/L BUN 15 (7.0-18.0) mg/dL Creatinine 0.9 (0.8-1.3) mg/dL Est Cr Clr Drug Dosing 82.33 mL/min Estimated GFR (MDRD) > 60.0 ml/min Glucose 101 (74-106) mg/dL Calcium 8.4 L (8.5-10.1) mg/dL Total Bilirubin 0.5 (0.2-1.0) mg/dL AST 19 (15-37) IU/L ALT 22 (14-63) IU/L Alkaline Phosphatase 74 (46-116) U/L Total Protein 7.1 (6.4-8.2) g/dL Albumin 3.4 (3.4-5.0) g/dL Globulin 3.7 (2.6-4.0) g/dL Albumin/Globulin Ratio 0.9 (0.9-1.6) SARS-CoV-2 RNA (VEENA) (NEGATIVE) 06/25/20 Range/Units 12:35 WBC (4.0-11.0) K/uL RBC (4.50-5.90) M/uL Hgb (13.0-17.0) g/dL Hct (38.0-50.0) % MCV (80.0-98.0) fL MCH (27.0-32.0) pg MCHC (31.0-37.0) g/dL RDW Std Deviation (28.0-62.0) fl RDW Coeff of Lewis (11.0-15.0) % Plt Count (150-400) K/uL MPV (7.40-12.00) fL Neut % (Auto) (48.0-80.0) % Lymph % (Auto) (16.0-40.0) % [place] % (Auto) (0.0-15.0) % Eos % (Auto) (0.0-7.0) % Baso % (Auto) (0.0-1.5) % Neut # (Auto) (1.4-5.7) K/uL Lymph # (Auto) (0.6-2.4) K/uL [place] # (Auto) (0.0-0.8) K/uL Eos # (Auto) (0.0-0.7) K/uL Baso # (Auto) (0.0-0.1) K/uL Nucleated RBC % /100WBC Nucleated RBCs # K/uL INR Sodium (136-148) mmol/L Potassium (3.5-5.1) mmol/L Chloride (98-107) mmol/L Carbon Dioxide (21.0-32.0) mmol/L BUN (7.0-18.0) mg/dL Creatinine (0.8-1.3) mg/dL Est Cr Clr Drug Dosing mL/min Estimated GFR (MDRD) ml/min Glucose (74-106) mg/dL Calcium (8.5-10.1) mg/dL Total Bilirubin (0.2-1.0) mg/dL AST (15-37) IU/L ALT (14-63) IU/L Alkaline Phosphatase (46-116) U/L Total Protein (6.4-8.2) g/dL Albumin (3.4-5.0) g/dL Globulin (2.6-4.0) g/dL Albumin/Globulin Ratio (0.9-1.6) SARS-CoV-2 RNA (VEENA) NEGATIVE (NEGATIVE) Result Diagrams: 06/25/20 10:31 06/25/20 10:31 Sepsis Event Note - Evaluation Sepsis Screening Result: No Definite Risk - Focused Exam Vital Signs: Vital Signs Temp Pulse Resp BP Pulse Ox 06/25/20 13:00 65 17 146/83 H 96 06/25/20 10:14 36.3 C 68 18 146/68 H 95 - Problem List (1) DVT, Deep venous thrombosis of lower extremity SNOMED Code(s): 856419006 ICD Code: I82.409 - ACUTE EMBOLISM AND THOMBOS UNSP DEEP VN UNSP LOWER EXTREMITY Status: Acute Current Visit: No Onset Date: 07/21/14 Problem List Initiated/Reviewed/Updated: Yes Orders Last 24hrs: Active Orders 24 hr Category Date Time Status Admission Status [Patient Status] [ADT] Stat ADT 06/25/20 12:10 Active Communication Order [RC] STAT Care 06/25/20 10:46 Active Oxygen Therapy [RC] PRN Care 06/25/20 14:32 Active Up ad Savi [RC] ASDIRECTED Care 06/25/20 14:32 Active VTE/DVT Education [RC] PER UNIT ROUTINE Care 06/25/20 14:32 Active Vital Signs [RC] Q4H Care 06/25/20 14:32 Active Regular Diet [DIET] Diet 06/25/20 Lunch Active CBC WITH AUTO DIFF [HEME] AM Lab 06/26/20 05:11 Ordered COMPREHENSIVE METABOLIC PN,CMP [CHEM] AM Lab 06/26/20 05:11 Ordered Acetaminophen [TylenoL] Med 06/25/20 14:32 Active 650 mg PO Q4H PRN Enoxaparin [Lovenox] Med 06/25/20 21:00 Active 100 mg SUBCUT Q12H Ondansetron [Zofran] Med 06/25/20 14:32 Active 4 mg IVPUSH Q4H PRN Sodium Chloride 0.9% [Saline Flush] Med 06/25/20 12:12 Active 10 ml FLUSH ASDIRECTED PRN Sodium Chloride 0.9% [Saline Flush] Med 06/25/20 12:12 Active 2.5 ml FLUSH ASDIRECTED PRN Saline Lock Insert [OM.PC] Stat Oth 06/25/20 12:12 Ordered Resuscitation Status Routine Resus Stat 06/25/20 14:32 Ordered Medication Orders Acetaminophen (Tylenol) 650 mg PO Q4H PRN PRN Reason: Pain (Mild 1-3)/fever Enoxaparin Sodium (Lovenox) 100 mg SUBCUT Q12H CELSA Ondansetron HCl (Zofran) 4 mg IVPUSH Q4H PRN PRN Reason: Nausea Sodium Chloride (Saline Flush) 10 ml FLUSH ASDIRECTED PRN PRN Reason: Keep Vein Open Sodium Chloride (Saline Flush) 2.5 ml FLUSH ASDIRECTED PRN PRN Reason: Keep Vein Open Assessment/Plan Comment:: Assessment and Plan: 1. Acute LLE DVT: - Admit to med/surg. Patient failed warfarin therapy despite therapeutic INR (2.58). Will start patient on Lovenox 1 mg/kg BID. - LLE U/S: DVT of left common femoral vein and superficial femoral veins.
[2020-06-25] MEDS ORDERED: Gabapentin 300 MG Cap PO SCH (21:00)
[2020-06-25] MEDS ORDERED: Enoxaparin 100 MG/1 ML Syringe SUBCUT SCH (21:00)
[2020-06-26] MEDS ORDERED: Enoxaparin 100 MG/1 ML Syringe SUBCUT ONE (01:30)
[2020-06-26 07:00] LABS: BLOOD UREA NITROGEN,BUN 15 mg/dL (7.0-18.0); CARBON DIOXIDE,CO2 28.8 mmol/L (21.0-32.0); CHLORIDE,CL 109 mmol/L (98-107); GLUCOSE RANDOM 94 mg/dL (74-106); POTASSIUM,K 4.2 mmol/L (3.5-5.1); SODIUM,NA 144 mmol/L (136-148)
--- NOTE | 2020-06-26 11:40 | PCM.DCSUM1 ---
Discharge Summary - Hospital Course Brief History: 60-year-old male presented complaining of worsening left leg swelling and calf pain. 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 He is on chronic warfarin therapy and regularly follows-up with his PCP. His INR is checked regularly and is usually in the therapeutic range. Yesterday evening, he noticed pain in his left calf and worsening leg swelling. His left leg is always more swollen than his right but he noticed it was more swollen than usual. He then came to the hospital as he was concerned of having another blood clot. Patient reports first being diagnosed with DVT approximately 8 years ago. He reports having extensive blood work done to discover the reason for his clots, however, was told that all testing came back negative. After being diagnosed with his second DVT a few years ago, he was told that he would have to be on warfarin indefinitely. He denies having any fevers, chills, sore throat, cough, SOB, chest pain, nausea, vomiting, abdominal pain, diarrhea, blood in stool or blood in urine. In the ER, CBC and CMP unremarkable, INR 2.58, covid-19 test negative. LLE U/S showed DVT in left common femoral vein and superficial femoral veins. Patient was given lovenox 97 mg subcut and admitted for further evaluation. Diagnosis: Stroke: No - Discharge Data Discharge Date: 06/26/20 Discharge Disposition: Home, Self-Care 01 Condition: Good - Referral to Home Health Primary Care Physician: Marcin Whelan MD - Discharge Diagnosis/Problem(s) (1) DVT, Deep venous thrombosis of lower extremity SNOMED Code(s): 718948055 ICD Code: I82.409 - ACUTE EMBOLISM AND THOMBOS UNSP DEEP VN UNSP LOWER EX TREMITY Status: Acute Current Visit: No Onset Date: 07/21/14 - Patient Summary/Data Hospital Course: Pt came in with recurrent DVT in left leg. Last episode was 6 years ago. It was unprovoked; previously has been worked up and not found to have an underlying condition contributing to such events. Pt was initially on warfarin, was initiated on Lovenox. Stated 1.0 mg/kg/ day BID. Today will be started on 1.5mg/kg/day daily and discontinue warfarin. Prior to discharge leg swelling had resolved. Pt is to follow up with and a [facility] as an outpatient. - Patient Instructions Diet: Heart Healthy Diet Activity: As Tolerated - Discharge Plan *PRESCRIPTION DRUG MONITORING PROGRAM REVIEWED*: Not Applicable *COPY OF PRESCRIPTION DRUG MONITORING REPORT IN PATIENT ALEX: Not Applicable Prescriptions/Med Rec: Enoxaparin [Lovenox] 150 mg SUBCUT DAILY 30 Days #30 syringe Home Medications: Home Meds Gabapentin [Neurontin] 1 tab PO BEDTIME 06/25/20 [History] Enoxaparin [Lovenox] 150 mg SUBCUT DAILY 30 Days #30 syringe 06/26/20 [Rx] Gabapentin [Neurontin] 300 mg PO BEDTIME cap 06/26/20 [Rx] Oxygen Therapy Mode: Room Air Forms: ED Department Discharge Referrals: Marcin Whelan MD [Primary Care Provider] - - Discharge Summary/Plan Comment DC Time >30 min.: No - Patient Data Vitals - Most Recent: Last Vital Signs Temp 98.6 F 06/26/20 08:28 Pulse 63 06/26/20 08:28 Resp 16 06/26/20 08:28 BP 133/73 06/26/20 08:28 Pulse Ox 96 06/26/20 08:28 Weight - Most Recent: 215 lb I&O - Last 24 hours: Intake & Output 06/25/20 06/26/20 06/26/20 22:59 06:59 14:59 Intake Total 200 750 Output Total 0 450 Balance 200 300 Lab Results - Last 24 hrs: Laboratory Results - last 24 hr 06/25/20 06/26/20 06/26/20 Range/Units 12:35 05:35 05:35 WBC 6.35 (4.0-11.0) K/uL RBC 4.59 (4.50-5.90) M/uL Hgb 13.8 (13.0-17.0) g/dL Hct 43.3 (38.0-50.0) % MCV 94.3 (80.0-98.0) fL MCH 30.1 (27.0-32.0) pg MCHC 31.9 (31.0-37.0) g/dL RDW Std Deviation 45.1 (28.0-62.0) fl RDW Coeff of Lewis 13 (11.0-15.0) % Plt Count 227 (150-400) K/uL MPV 10.60 (7.40-12.00) fL Neut % (Auto) 48.4 (48.0-80.0) % Lymph % (Auto) 35.6 (16.0-40.0) % [place] % (Auto) 8.3 (0.0-15.0) % Eos % (Auto) 7.2 H (0.0-7.0) % Baso % (Auto) 0.5 (0.0-1.5) % Neut # (Auto) 3.1 (1.4-5.7) K/uL Lymph # (Auto) 2.3 (0.6-2.4) K/uL [place] # (Auto) 0.5 (0.0-0.8) K/uL Eos # (Auto) 0.5 (0.0-0.7) K/uL Baso # (Auto) 0.0 (0.0-0.1) K/uL Nucleated RBC % 0.0 /100WBC Nucleated RBCs # 0 K/uL Sodium 144 (136-148) mmol/L Potassium 4.2 (3.5-5.1) mmol/L Chloride 109 H (98-107) mmol/L Carbon Dioxide 28.8 (21.0-32.0) mmol/L BUN 15 (7.0-18.0) mg/dL Creatinine 0.8 (0.8-1.3) mg/dL Est Cr Clr Drug Dosing 92.63 mL/min Estimated GFR (MDRD) > 60.0 ml/min Glucose 94 (74-106) mg/dL Calcium 8.0 L (8.5-10.1) mg/dL Total Bilirubin 0.4 (0.2-1.0) mg/dL AST 20 (15-37) IU/L ALT 18 (14-63) IU/L Alkaline Phosphatase 66 (46-116) U/L Total Protein 6.3 L (6.4-8.2) g/dL Albumin 3.0 L (3.4-5.0) g/dL Globulin 3.3 (2.6-4.0) g/dL Albumin/Globulin Ratio 0.9 (0.9-1.6) Prostate Specific Ag 0.84 (0.05-4.00) ng/mL SARS-CoV-2 RNA (VEENA) NEGATIVE (NEGATIVE) Med Orders - Current: Current Medications Acetaminophen (Tylenol) 650 mg PO Q4H PRN PRN Reason: Pain (Mild 1-3)/fever Gabapentin (Neurontin) 300 mg PO BEDTIME CELSA Last Admin: 06/25/20 20:48 Dose: 300 mg Documented by: Ondansetron HCl (Zofran) 4 mg IVPUSH Q4H PRN PRN Reason: Nausea Sodium Chloride (Saline Flush) 10 ml FLUSH ASDIRECTED PRN PRN Reason: Keep Vein Open Sodium Chloride (Saline Flush) 2.5 ml FLUSH ASDIRECTED PRN PRN Reason: Keep Vein Open Discontinued Medications Enoxaparin Sodium (Lovenox) 97 mg SUBCUT ONETIME ONE Stop: 06/25/20 12:12 Last Admin: 06/25/20 13:36 Dose: 97 mg Documented by: Enoxaparin Sodium (Lovenox) 100 mg SUBCUT Q12H [facility] Enoxaparin Sodium (Lovenox) 100 mg SUBCUT ONETIME ONE Stop: 06/26/20 01:31 Last Admin: 06/26/20 01:30 Dose: 100 mg Documented by:
[2020-06-26 12:52] VITALS: BP 141/85; PULSE 67
[2020-06-26] MEDS ORDERED: Enoxaparin 150 MG/1 ML Syringe SUBCUT ONE (13:30)
== END 2020-06-26 13:48 | disposition home or self-care (01) ==
LOC: MW.ED 10:07 → MW.MS 12:10
PROVIDERS: ADMIT Internal Medicine; ATTEND Internal Medicine
DX: I82.402 Acute embolism and thrombosis of unspecified deep veins of left lower extremity (principal); E66.9 Obesity, unspecified; Z87.891 Personal history of nicotine dependence; Z79.01 Long term (current) use of anticoagulants; Z88.8 Allergy status to other drugs, medicaments and biological substances; Z79.899 Other long term (current) drug therapy; Z20.828 Contact with and (suspected) exposure to other viral communicable diseases; Z68.32 Body mass index [BMI] 32.0-32.9, adult
CPT/HCPCS: 36415; 80053; 84153; 85025; 85610; 87635; 93971; 96372; 99284; A9270; J1650; 99217; 99236; G0378; U0002

== ENCOUNTER → 2020-10-14 | Day surgery (SDC) | payer OTHER ==
[~2020-10-14] MED LIST changes: +Lactated Ringers 1,000 ML IV SCH; +Lidocaine 2% 5 ML SDV ONE; +Midazolam 1 MG/ML 2 ML SDV ONE; +Propofol 200 MG/20 ML SDV ONE; -Sodium Chloride 0.9% 10 ML SDV IV PRN; -Sodium Chloride 0.9% 10 ML Syringe FLUSH PRN; -Sodium Chloride 0.9% 2.5 ML Syringe FLUSH PRN; -ceFAZolin 2 GM in Premix Bag 1 BAG IV SCH; +fentaNYL 100 MCG/2 ML SDV ONE
--- NOTE | 2020-10-14 07:33 | PCM.PREANE ---
Preanesthetic Assessment - Anesthesia/Transfusion/Family Hx Anesthesia History: Prior Anesthesia Without Reaction Family History of Anesthesia Reaction: No Transfusion History: No Prior Transfusion(s) Intubation History: Unknown - Review of Systems General: No Symptoms Pulmonary: No Symptoms Cardiovascular: No Symptoms Gastrointestinal: Other (positive cologuard test) Neurological: Gait Disturbance Other: Reports: None - Physical Assessment Vital Signs: Last Vital Signs Temp 36.4 C 10/14/20 07:11 Pulse 74 10/14/20 07:11 Resp 16 10/14/20 07:11 BP 172/88 H 10/14/20 07:11 Pulse Ox 93 L 10/14/20 07:11 Height: 5 ft 8 in Weight: 101.605 kg ASA Class: 3 Mental Status: Alert & Oriented x3 Airway Class: Mallampati = 3 Dentition: Reports: Partial (upper (removable)) Thyro-Mental Finger Breadths: 3 Mouth Opening Finger Breadths: 3 ROM/Head Extension: Limited/Partial Lungs: Clear to Auscultation, Normal Respiratory Effort Cardiovascular: Regular Rate, Regular Rhythm - Allergies Allergies/Adverse Reactions: Allergies Allergy/AdvReac Type Severity Reaction Status Date / Time ciprofloxacin Allergy Hives Verified 10/14/20 07:08 - Blood Blood Available: No - Anesthesia Plan Pre-Op Medication Ordered: None - Acknowledgements Anesthesia Type Planned: MAC Pt an Appropriate Candidate for the Planned Anesthesia: Yes Alternatives and Risks of Anesthesia Discussed w Pt/Guardian: Yes Pt/Guardian Understands and Agrees with Anesthesia Plan: Yes PreAnesthesia Questionnaire HEENT History: Other HEENT History: uses reading glasses, has upper removable partial denture, hx of fx nose Cardiovascular History: Reports: Blood Clots/VTE/DVT Other Cardiovascular History: hx of DVT's x3- last one was 2019, will stop Eliquis and bridge with Lovonox Respiratory History: Reports: Sleep Apnea Other Respiratory History: does not use CPAP Gastrointestinal History: Reports: Other (See Below) Other Gastrointestinal History: takes Omeprazole PRN Genitourinary History: Reports: BPH, Renal Calculus Other Genitourinary History: has passed several kidney stones Musculoskeletal History: Reports: Other (See Below) Other Musculoskeletal History: "lump" removed from chest Neurological History: Reports: Neuropathy, Peripheral, Other (See Below) Other Neuro History: hx of Charcot Harriet Tooth with balance issues, has restless legs Psychiatric History: Reports: Other (See Below) Other Psychiatric History: hx of Claustrophobia Endocrine/Metabolic History: Reports: Obesity/BMI 30+ (BMNI 34.1) Hematologic History: Reports: Anticoagulation Therapy Immunologic History: Reports: None Oncologic (Cancer) History: Reports: None Dermatologic History: - Infectious Disease History Infectious Disease History: Reports: Chicken Pox - Past Surgical History Head Surgeries/Procedures: Reports: None GI Surgical History: Reports: Colonoscopy Other Female Surgeries/Procedures: left extracorpeal shockwave lithotripsy followed by Lithrotripsy Male Surgical History: Reports: Lithotripsy (ESWL) - SUBSTANCE USE Tobacco Use Status *Q: Former Tobacco User Tobacco Use Within Last Twelve Months: No Days Per Week of Alcohol Use: 5 Number of Drinks Per Day: 1 Total Drinks Per Week: 5 Recreational Drug Use History: No - HOME MEDS Home Medications: Home Meds Gabapentin [Neurontin] 300 mg PO BEDTIME cap 06/26/20 [Rx] Omeprazole 20 mg PO DAILY PRN 10/10/20 [History] Rivaroxaban [Xarelto] 20 mg PO DAILY 10/10/20 [History] - CURRENT (IN HOUSE) MEDS Current Meds: Current Medications Lactated Ringer's (Ringers, Lactated) 1,000 mls @ 125 mls/hr IV ASDIRECTED [facility] Last Admin: 10/14/20 07:08 Dose: 125 mls/hr Documented by: Discontinued Medications Fentanyl (Sublimaze) Confirm Administered Dose 100 mcg .ROUTE .STK-MED ONE Stop: 10/14/20 07:23 Midazolam HCl (Versed 1 Mg/Ml) Confirm Administered Dose 2 mg .ROUTE .STK-MED ONE Stop: 10/14/20 07:23 Propofol (Diprivan 20 Ml) Confirm Administered Dose 400 mg .ROUTE .STK-MED ONE Stop: 10/14/20 07:23
--- NOTE | 2020-10-14 08:13 | PCM.OPNOTE ---
- General Post-Op/Procedure Note Date of Surgery/Procedure: 10/14/20 Operative Procedure(s): Colonoscopy with cold sigmoid colon polypectomy Pre Op Diagnosis: Personal history of colon polyps. Positive Cologuard test. Post-Op Diagnosis: Sigmoid polyp. Anesthesia Technique: MAC (ASA III), Moderate Sedation Primary Surgeon: Miko Case Condition: Good Free Text/Narrative:: DICTATION 446302 CPT CODE 98391
--- NOTE | 2020-10-14 08:42 | PCM.POSTAN ---
POST ANESTHESIA ASSESSMENT - MENTAL STATUS Mental Status: Alert, Oriented - VITAL SIGNS Vital Signs: Last Vital Signs Temp 36.4 C 10/14/20 07:11 Pulse 64 10/14/20 08:16 Resp 16 10/14/20 08:16 BP 144/79 H 10/14/20 08:16 Pulse Ox 94 L 10/14/20 08:16 - RESPIRATORY Respiratory Status: Respiratory Rate WNL, Airway Patent, O2 Saturation Stable - CARDIOVASCULAR CV Status: Pulse Rate WNL, Blood Pressure Stable - GASTROINTESTINAL GI Status: No Symptoms - PAIN Pain Score: 0 - POST OP HYDRATION Hydration Status: Adequate & Stable - OBSERVATIONS Free Text/Narrative:: No anesthesia problems
--- NOTE | 2020-10-14 08:43 | PCM48HPAN ---
Post Anesthesia Note - EVALUATION WITHIN 48HRS OF ANESTHETIC Vital Signs in Normal Range: Yes Patient Participated in Evaluation: Yes Respiratory Function Stable: Yes Airway Patent: Yes Cardiovascular Function Stable: Yes Hydration Status Stable: Yes Pain Control Satisfactory: Yes Nausea and Vomiting Control Satisfactory: Yes Mental Status Recovered: Yes Vital Signs: Last Vital Signs Temp 36.4 C 10/14/20 07:11 Pulse 64 10/14/20 08:16 Resp 16 10/14/20 08:16 BP 144/79 H 10/14/20 08:16 Pulse Ox 94 L 10/14/20 08:16 - COMMENTS/OBSERVATIONS Free Text/Narrative:: No anesthesia problems
--- NOTE | 2020-10-14 08:56 | OR ---
SURGEON: Miko Case M.D. DATE OF PROCEDURE: 10/14/2020 OPERATION PERFORMED: Colonoscopy with cold sigmoid polypectomy. PRIMARY SURGEON: Miko Case M.D. ANESTHESIA: MAC. ASA CLASSIFICATION: III. PREOPERATIVE DIAGNOSES: 1. Positive Cologuard test. POSTOPERATIVE DIAGNOSIS: Small sigmoid polyp. DESCRIPTION OF PROCEDURE: The patient was taken to the endoscopy room and positioned on the endoscopy table in the left lateral decubitus position. Time-out was called for appropriate identification of the patient and procedure. Monitored anesthesia care was provided. The colonoscope was inserted into the rectum and advanced with minimal difficulty to the cecum. The cecum was identified by internal landmarks and external pressure. The colonoscope was retroflexed to visualize the ascending colon from below, then straightened, and slowly withdrawn. The cecum, ascending colon, hepatic flexure, transverse colon, splenic flexure, and descending colon were very well visualized. The prep was excellent. No tumors, polyps, diverticula, or angiodysplastic changes were noted anywhere in the lower gastrointestinal tract. One small polyp was encountered in the distal sigmoid colon and this was removed with the cold biopsy forceps. No significant bleeding was noted. The colonoscope was then withdrawn to the rectum and retroflexed to visualize the anal orifice from above. No tumors, polyps, or acute hemorrhoidal changes were noted. The colonoscope was then straightened, the rectum aspirated, and the colonoscope removed. The patient tolerated the procedure well and was taken to recovery room in stable condition. MAKENZIE / PAULY /[id number] [facility]
[2020-10-14 09:33] VITALS: BP 144/78; PULSE 61
== END | disposition home or self-care (01) ==
LOC: MW.SDS 06:30
PROVIDERS: ATTEND Surgery
DX: K63.5 Polyp of colon (principal); K64.9 Unspecified hemorrhoids; I82.409 Acute embolism and thrombosis of unspecified deep veins of unspecified lower extremity; E66.9 Obesity, unspecified; Z88.8 Allergy status to other drugs, medicaments and biological substances; Z79.899 Other long term (current) drug therapy; Z98.890 Other specified postprocedural states; Z87.891 Personal history of nicotine dependence; Z68.34 Body mass index [BMI] 34.0-34.9, adult
CPT/HCPCS: 45380; J2250; J2704; J3010; J7120; 88305

== ENCOUNTER 2024-12-12 11:35 | Emergency (ER) | payer MEDICARE, OTHER ==
[2024-12-12 12:11] LABS: APPEARANCE,URINE CLOUDY; COLOR,URINE BROWN; GLUCOSE,URINE NEGATIVE (NEGATIVE); KETONES,URINE NEGATIVE (NEGATIVE); LEUKOCYTE ESTERASE,URINE TRACE (NEGATIVE); NITRITE,URINE NEGATIVE (NEGATIVE); OCCULT BLOOD,URINE LARGE (NEGATIVE); PROTEIN,URINE 30 mg/dL (NEGATIVE)
[2024-12-12 12:17] LABS: BILIRUBIN,URINE SMALL (NEGATIVE)
[2024-12-12 12:18] LABS: BACTERIA,URINE FEW (NEGATIVE); EPITHELIAL CELLS,URINE OCCASIONAL (NONE-FEW); RBC,URINE TOO NUMEROUS TO CT (0-2/HPF)
[2024-12-12] MEDS: Morphine 4 MG/ML Syringe IVPUSH ONE (12:19)
[2024-12-12] MEDS: Ondansetron 4 MG/2 ML SDV IVPUSH ONE (12:19)
[2024-12-12 12:24] LABS: BASOPHILS ABSOLUTE AUTO 0.06 K/uL (0.00-0.20); BASOPHILS PERCENT AUTO 0.9 % (0.0-1.0); EOSINOPHILS ABSOLUTE AUTO 0.19 K/uL (0.00-0.45); EOSINOPHILS PERCENT AUTO 2.9 % (0.0-6.0); HEMATOCRIT 45.2 % (42.0-52.0); HEMOGLOBIN 15.4 g/dL (14.0-18.0); IMMATURE GRAN ABSOLUTE AUTO 0.01 K/uL (0.00-0.05); IMMATURE GRAN PERCENT AUTO 0.2 % (0.0-0.4); LYMPHOCYTES ABSOLUTE AUTO 1.06 K/uL (1.00-4.80); LYMPHOCYTES PERCENT AUTO 16.3 % (24.0-44.0); MEAN CORPUSCULAR HEMOGLOBIN 30.9 pg (28.0-32.0); MEAN CORPUSCULAR HGB CONC 34.1 g/dL (32.0-36.0); MEAN CORPUSCULAR VOLUME 90.6 fL (83.0-99.0); MONOCYTES ABSOLUTE AUTO 0.36 K/uL (0.00-0.80); MONOCYTES PERCENT AUTO 5.5 % (0.0-8.0); NEUTROPHILS ABSOLUTE AUTO 4.84 K/uL (1.80-7.70); NEUTROPHILS PERCENT AUTO 74.2 % (41.0-71.0); PLATELET COUNT,PLT 227 K/uL (150-400); RED BLOOD CELL COUNT 4.99 M/uL (4.52-5.90); WHITE BLOOD CELL COUNT,WBC 6.52 K/uL (3.9-11.3)
[2024-12-12 12:38] LABS: INR 1.27 (0.86-1.11); PTT,PARTIAL THROMBOPLSTIN TIME 29.3 SEC (23.9-30.7)
[2024-12-12 12:50] LABS: A/G RATIO 1.1 (0.9-1.6); ALBUMIN 3.6 g/dL (3.4-5.0); BILIRUBIN TOTAL 0.6 mg/dL (0.2-1.0); CALCIUM 8.8 mg/dL (8.5-10.1); CARBON DIOXIDE,CO2 28.6 mmol/L (21.0-32.0); CREATININE 1.1 mg/dL (0.8-1.3); EST CRCL DRUG DOSING (CG) 63.91 mL/min; POTASSIUM,K 3.6 mmol/L (3.5-5.1); PROTEIN TOTAL,TP 6.9 g/dL (6.4-8.2)
[2024-12-12] MEDS: Sodium Chloride 0.9% 1,000 ML IV ONE (13:20)
[2024-12-12] MEDS ORDERED: cefTRIAXone 1 GM in Sodium Chloride 0.9% 50 ML IV ONE (13:37)
[2024-12-12] MEDS: cefTRIAXone 1 GM in Water For Injection, Sterile 10 ML IVPUSH ONE (13:48)
[2024-12-12 14:40] VITALS: BP 126/63; PULSE 62
== END 2024-12-12 14:40 | disposition home or self-care (01) ==
LOC: MW.ED 11:35
DX: N13.2 Hydronephrosis with renal and ureteral calculous obstruction (principal); N39.0 Urinary tract infection, site not specified; Z88.8 Allergy status to other drugs, medicaments and biological substances; Z79.01 Long term (current) use of anticoagulants; Z79.899 Other long term (current) drug therapy
CPT/HCPCS: 36415; 74176; 80053; 81001; 85025; 85610; 85730; 96361; 96374; 96375; 99284; J0696; J2270; J2405; J7030; 99283